=== PATIENT | female | born 1985 | race Two or more races ===

== ENCOUNTER 2017-04-28 08:04 | Emergency (ER) | payer OTHER ==
[2017-04-28 08:08] VITALS: BMI 38.7
[2017-04-28 09:14] LABS: BASOPHIL 0.9 % (0-2.0); EOSINOPHIL 1.5 % (0-4.5); MCH 30.7 pg (25.7-33.7); MCHC 34.6 g/dl (32.0-36.0); MEAN CELL VOLUME 88.8 fl (80-96); MEAN PLT VOLUME 9.3 fl (7.5-11.1); PLATELET COUNT 249 K/MM3 (134-434); RDW 11.9 % (11.6-15.6); WHITE BLOOD COUNT 10.6 K/mm3 (4.0-10.0)
[2017-04-28] MEDS ORDERED: ACETAMINOPHEN 325 MG TABLET (FP) PO ONE (09:19)
[2017-04-28 09:26] LABS: INR 1.04 (0.82-1.09); PROTHROMBIN TIME (PATIENT) 11.4 SEC (9.98-11.88)
[2017-04-28] MEDS ORDERED: IBUPROFEN 400 MG TABLET (FP) PO ONE ×2 (09:30→09:34)
--- NOTE | 2017-04-28 09:43 | PDOC ---
History of Present Illness - General Chief Complaint: Vaginal Bleeding Stated Complaint: VAGINAL BLEEDING, DIZZINESS Time Seen by Provider: 04/28/17 08:17 History Source: Patient Exam Limitations: No Limitations - History of Present Illness Travel History: No Initial Comments: 04/28/17 09:41 31 yr female with no medical history states she has an Norplant implant to her left upper arm. Pt states she has had menstrual bleeding since March 16. Intermittent bleeding with some clots. Pt denies fever or chills no back pain. [facility] have [facility] removed. Quality: reports: cramping Pain Radiation: reports: no radiation Past History - Past Medical History Allergies/Adverse Reactions: Allergies Allergy/AdvReac Type Severity Reaction Status Date / Time walnut Allergy Swelling Verified 04/28/17 08:08 Home Medications: Ambulatory Orders No Home Medications 0 dose .ROUTE UTDICT 10/05/13 Asthma: No Cancer: No Cardiac Disorders: No Diabetes: Yes (PRE) HTN: No Seizures: No Thyroid Disease: No - Reproductive History Is Patient Now?: (unsure) (#): 1 Para: 1 Therapeutic (s) & number: No Spontaneous : 0 - Immunization History Immunization Up to Date: Yes - Suicide/Smoking/Psychosocial Hx Smoking History: Current some day smoker Have you smoked in the past 12 months: No Number of Cigarettes Smoked Daily: 4 Information on smoking cessation initiated: No 'Breaking Loose' booklet given: 04/28/17 Hx Alcohol Use: Yes (SOCIAL) Drug/Substance Use Hx: No Substance Use Type: None Hx Substance Use Treatment: No Abd/GI Specific PMHX - Complaint Specific PMHX Colitis: No Diverticulitis: No Gall Bladder Disease: No GERD: No Hepatitis: No Irritable Bowel Synd (IBS): No Pancreatitis: No GI Ulcer Disease: No Review of Systems - Review of Systems Able to Perform ROS?: Yes Is the patient limited Slovak proficient: No Constitutional: No: Symptoms Reported HEENTM: No: Symptoms Reported Respiratory: No: Symptoms reported Cardiac (ROS): No: Symptoms Reported ABD/GI: No: Symptoms Reported : No: Symptoms Reported Musculoskeletal: Yes: Symptoms Reported *Physical Exam - Vital Signs Last Vital Signs Temp Pulse Resp BP Pulse Ox 98.2 F 90 20 153/82 100 04/28/17 08:05 04/28/17 08:05 04/28/17 08:05 04/28/17 08:05 04/28/17 08:05 - Physical Exam General Appearance: Yes: Nourished, Appropriately Dressed HEENT: positive: EOMI, STEPHANIE, Normal ENT Inspection, TMs Normal, Pharynx Normal Neck: positive: Supple Respiratory/Chest: positive: Lungs Clear, Normal Breath Sounds Cardiovascular: positive: Regular Rhythm, Regular Rate Gastrointestinal/Abdominal: positive: Normal Bowel Sounds, Soft. negative: Tender Musculoskeletal: positive: Normal Inspection Extremity: positive: Normal Capillary Refill, Normal Inspection, Normal Range of Motion ED Treatment Course - LABORATORY CBC & Chemistry Diagram: 04/28/17 08:55 - ADDITIONAL ORDERS Additional order review: Laboratory Results 04/28/17 04/28/17 09:15 08:55 PT with INR 11.40 INR 1.04 Urine HCG, Qual Negative 04/28/17 08:55 RBC 4.59 MCV 88.8 MCHC 34.6 RDW 11.9 MPV 9.3 Neutrophils % 62.0 Lymphocytes % 30.3 D Monocytes % 5.3 Eosinophils % 1.5 Basophils % 0.9 - RADIOLOGY Radiology Studies Ordered: Category Date Time Status TRANSVAGINAL US PREG [US] Stat Ultrasound 04/28/17 09:29 Ordered - Medications Given in the ED: ED Medications Discontinued Medications Generic Name Dose Route Start Last Admin Trade Name Freq PRN Reason Stop Dose Admin Acetaminophen 650 mg 04/28/17 09:19 04/28/17 09:39 Tylenol - PO 04/28/17 09:20 Not Given ONCE ONE Ibuprofen 800 mg 04/28/17 09:30 04/28/17 09:39 Motrin - PO 04/28/17 09:31 800 mg ONCE ONE Administration Medical Decision Making - Medical Decision Making 04/28/17 09:55 cc: vaginal bleeding for 6 weeks on and off with some cramping. pt has norplant in her left arm that she states is and needs to have removed. no abd pain denies will check labs , pelvic US *DC/Admit/Observation/Transfer Diagnosis at time of Disposition: Bleeding, Vaginal bleeding - Discharge Dispostion Disposition: HOME Condition at time of disposition: Good - Referrals Referrals: Thomas Lucero MD [Staff Physician] - Shannan Carpio MD [Staff Physician] - - Patient Instructions Printed Discharge Instructions: DI for Vaginal Bleeding Additional Instructions: PLEASE FOLLOW WITH THE SURGEON TO HAVE THE IMPLANT REMOVED PLEASE FOLLOW WITH THE ADMISSION DISCHARGE RN FOR FOLLOW UP NEEDED OR [facility] FOR ANY CRAMPING OR PAIN MAKE SURE YOU ARE USING ANOTHER FORM OF CONTROL TO AVOID UNWANTED AT THIS TIME.
[2017-04-28 11:43] VITALS: BP 105/72; PULSE 81; TEMP 97.8
== END 2017-04-28 11:43 | disposition home or self-care (01) ==
LOC: JER 08:04
DX: N93.9 Abnormal uterine and vaginal bleeding, unspecified (principal)
CPT/HCPCS: 36415; 76830-TC; 84703; 85025; 85610; 99283-25

== ENCOUNTER 2017-06-03 06:59 | Day surgery (SDC) | payer OTHER ==
[2017-06-03 07:25] VITALS: TEMP 98.1; BMI 37.8
--- NOTE | 2017-06-03 09:59 | CONSULT ---
Consult Consult Specialty:: Surgery Reason for Consultation:: Left upper extremity foreign body - History of Present Illness History of Present Illness: 32 female presents to the ER for foreign body in her left upper extremity Some pain and discomfort No fevers - History Source History Provided By: Patient Limitations to Obtaining History: No Limitations - Past Medical History ...LMP: 04/23/17 ...: No - Alcohol/Substance Use Hx Alcohol Use: Yes (OCCAS) - Smoking History Smoking history: Former smoker Have you smoked in the past 12 months: Yes Aproximately how many cigarettes per day: 4 If you are a former smoker, when did you quit?: 3WEEKS Home Medications - Allergies Allergies/Adverse Reactions: Allergies Allergy/AdvReac Type Severity Reaction Status Date / Time No Known Drug Allergies Allergy Verified 06/03/17 07:29 walnut Allergy "TIGHT Verified 06/03/17 07:29 THROAT,DIFFICULTY BREATHING" - Home Medications Home Medications: Ambulatory Orders Metformin HCl 500 mg PO BID 06/03/17 Family Disease History - Family Disease History Family History: Unremarkable Review of Systems - Review of Systems Constitutional: denies: Chills, Fever HENT: reports: No Symptoms Neck: reports: No Symptoms Cardiovascular: denies: Chest Pain Respiratory: denies: Cough Gastrointestinal: denies: Abdominal Pain Neurological: denies: Change in LOC Pain Intensity: 2 Physical Exam Vital Signs: Vital Signs Temperature 98.1 F 06/03/17 07:27 Pulse Rate 70 06/03/17 09:26 Respiratory Rate 20 06/03/17 07:27 Blood Pressure 105/64 06/03/17 09:26 O2 Sat by Pulse Oximetry (%) 100 06/03/17 09:26 Constitutional: Yes: Calm HENT: Yes: WNL Neck: Yes: Supple Cardiovascular: Yes: Regular Rate and Rhythm Respiratory: Yes: CTA Bilaterally Gastrointestinal: Yes: Soft, Abdomen, Obese Extremities: Yes: WNL Integumentary: Yes: Other (Foreign body at posterior aspect of left upper extremity) Neurological: Yes: Alert, Oriented Imaging - Results X-ray: Report Reviewed, Image Reviewed Problem List - Problems (1) Foreign body (FB) in soft tissue Code(s): M79.5 - RESIDUAL FOREIGN BODY IN SOFT TISSUE Assessment/Plan 32 female with foreign body in left upper extremity For excision
[2017-06-03 10:28] VITALS: BP 130/70; PULSE 70
--- NOTE | 2017-06-03 13:12 | OP ---
Operative Note - Note: Operative Date: 06/03/17 Pre-Operative Diagnosis: Left upper extremity foreign body Operation: Excision of Left upper extremity foreign body Post-Operative Diagnosis: Same as Pre-op Surgeon: Thomas Lucero Anesthesia: Local Specimens Removed: Left upper extremity foreign body Estimated Blood Loss (mls): 5 Operative Report Dictated: Yes
--- NOTE | 2017-06-03 14:18 | OP ---
DATE OF OPERATION: 06/03/2017 SURGEON: Masood Lucero MD PRACTICE BILLING ASSOCIATE: PREOPERATIVE DIAGNOSIS: Left upper extremity foreign body. POSTOPERATIVE DIAGNOSIS: Left upper extremity foreign body. PROCEDURE: Excision of left upper extremity foreign body. SPECIMEN: Left upper extremity foreign body. ESTIMATED BLOOD LOSS: 5 mL. DRAINS: None. ANESTHESIA: Local. REASON FOR PROCEDURE: This is a 32-year-old female who presents to the emergency room with complaints of a left upper extremity foreign body. X-ray was performed to further investigate. Because of the foreign body she has consented for excision of the left upper extremity foreign body. The risks and benefits of the procedure were explained. These included bleeding, infection, injury to surrounding structures, DVT as some of the complications. She understood and signed informed consent. DESCRIPTION OF PROCEDURE: The patient was placed supine on the operating table. The left arm was brought up to above the level of the head. The area of the foreign body was palpated and prepped and draped in the usual sterile fashion. A timeout was performed. Local lidocaine was injection along the area. An incision was made in the area and dissected down to the level of the foreign body. The foreign body was fully dissected and removed. It was noted to be a plastic contraceptive device. This was sent off the field. Hemostasis was achieved and the area was irrigated. Skin was closed using 4-0 Biosyn and a sterile dressing was applied. The patient tolerated the procedure well and was transferred to the recovery room in stable condition. MASOOD LUCERO M.D. [id number]
--- NOTE | 2017-06-04 10:28 | PATH ---
Surgical Pathology Report Patient Name: DELFINA LLOYD [facility]. Rec. #: [id number] /Age/Gender: 1985 (Age: 32) / F Account: [id number] Location: [facility] SURGICAL Taken: 06/03/2017 Received: 06/03/2017 Reported: 06/04/2017 Physicians: Thomas Lucero M.D. Specimen(s) Received FOREIGN BODY LEFT ARM Clinical History Removal of foreign body left upper arm Final Diagnosis ARM, LEFT UPPER, FOREIGN BODY, REMOVAL: FOREIGN BODY. MACROSCOPIC DIAGNOSIS. Electronically Signed Natividad Gallagher M.D. Gross Description Received in formalin labeled "foreign body left arm," is a 4 cm in length x 0.2 cm in diameter white, cylindrical, rubbery foreign body. No soft tissue is present. No sections are submitted, gross only. DL/06/03/2017 saudi/06/03/2017
== END 2017-06-03 10:28 | disposition home or self-care (01) ==
LOC: JASU-SURG 06:59
PROVIDERS: ATTEND Surgery
PROC: 0JBF0ZZ Excision of Left Upper Arm Subcutaneous Tissue and Fascia, Open Approach (ICD-10-PCS; principal; 2017-06-03 15:00)
DX: T85.848A Pain due to other internal prosthetic devices, implants and grafts, initial encounter (principal)
CPT/HCPCS: 84703; 88300-TC

== ENCOUNTER 2017-10-26 06:08 | Inpatient (IN) | payer OTHER ==
[2017-10-25 08:14] VITALS: BMI 37.8
[~2017-10-26 06:08] MED LIST: BUPIVACAINE HCL/PF 0.5% (5MG/ML) 10 ML VIAL IJ ONE
--- NOTE | 2017-10-26 07:58 | HP ---
Admitting History and Physical - Admission Chief Complaint: Morbid obesity History Source: Patient Limitations to Obtaining History: No Limitations - Past Medical History Pulmonary: Yes: Sleep Apnea Gastrointestinal: Yes: Other (Morbido obesity) ...LMP: 04/23/17 ...LMP Comment: 10/20/17 Endocrine: Yes: Diabetes Mellitus - Past Surgical History Past Surgical History: Yes: - Smoking History Smoking history: Former smoker Have you smoked in the past 12 months: No Aproximately how many cigarettes per day: 4 If you are a former smoker, when did you quit?: 3WEEKS - Alcohol/Substance Use Hx Alcohol Use: Yes (OCCAS) Home Medications - Allergies Allergies/Adverse Reactions: Allergies Allergy/AdvReac Type Severity Reaction Status Date / Time No Known Drug Allergies Allergy Verified 10/26/17 07:33 walnut Allergy "TIGHT Verified 10/26/17 07:33 THROAT,DIFFICULTY BREATHING" - Home Medications Home Medications: Ambulatory Orders Metformin HCl 500 mg PO DAILY 06/03/17 Calcium Carbonate [Calcium] 1,000 mg PO DAILY 10/25/17 Cholecalciferol (Vitamin D3) [Vitamin D3] 1,000 unit PO DAILY 10/25/17 Cyanocobalamin [Vitamin B12 -] 1,000 mcg PO DAILY 10/25/17 Folic Acid 1 mg PO DAILY 10/25/17 Iron 18 mg PO DAILY 10/25/17 Metformin HCl 500 mg PO ACDIN 10/25/17 Famotidine [Pepcid] 20 mg PO BID #60 tablet 10/26/17 Oxycodone HCl/Acetaminophen [Percocet 5-325 mg Tablet] 1 - 2 tab PO Q6H #28 tab MDD 4 10/26/17 Family Disease History - Family Disease History Family History: Unremarkable Review of Systems - Review of Systems Constitutional: denies: Chills, Fever HENT: reports: No Symptoms Neck: reports: No Symptoms Cardiovascular: reports: No Symptoms Respiratory: reports: No Symptoms Gastrointestinal: reports: No Symptoms Neurological: reports: No Symptoms Pain Intensity: 0 Physical Examination Vital Signs: Vital Signs Temperature 98.1 F 10/26/17 07:32 Pulse Rate 81 10/26/17 07:32 Respiratory Rate 20 10/26/17 07:32 Blood Pressure 111/68 10/26/17 07:32 O2 Sat by Pulse Oximetry (%) 100 10/26/17 07:28 Constitutional: Yes: Calm HENT: Yes: WNL Neck: Yes: WNL Cardiovascular: Yes: WNL Respiratory: Yes: Regular Gastrointestinal: Yes: Soft, Abdomen, Obese Neurological: Yes: Alert, Oriented Problem List - Problems (1) Morbid obesity due to excess calories Code(s): E66.01 - MORBID (SEVERE) OBESITY DUE TO EXCESS CALORIES (2) Diabetes mellitus Code(s): E11.9 - TYPE 2 DIABETES MELLITUS WITHOUT COMPLICATIONS Qualifiers: Diabetes mellitus type: type 2 (3) Sleep apnea Code(s): G47.30 - SLEEP APNEA, UNSPECIFIED Qualifiers: Sleep apnea type: obstructive Qualified Code(s): G47.33 - Obstructive sleep apnea (adult) (pediatric) Assessment/Plan Laparoscopic possible open vertical sleeve gastrectomy possible liver biopsy, EGD
[2017-10-26] MEDS ORDERED: MIDAZOLAM HCL 2 MG/2 ML SINGLE DOSE VIAL ONE (08:11)
[2017-10-26] MEDS ORDERED: PROPOFOL 20 ML ONE ×3 (08:19→10:02)
[2017-10-26] MEDS ORDERED: ROCURONIUM BROMIDE 50 MG/5 ML VIAL ONE ×2 (08:21)
[2017-10-26] MEDS ORDERED: SUCCINYLCHOLINE CHLORIDE 200 MG/10 ML VIAL ONE (08:26)
[2017-10-26] MEDS ORDERED: ceFAZolin SODIUM 1 GM VIAL IVPB ONE (08:27)
[2017-10-26] MEDS ORDERED: GLYCOPYRROLATE 0.2 MG/1 ML VIAL ONE (09:22)
[2017-10-26] MEDS ORDERED: ceFAZolin SODIUM 1 GM VIAL ONE (09:22)
[2017-10-26] MEDS ORDERED: DEXAMETHASONE SOD PHOSPHATE 4 MG/1 ML VIAL ONE (09:22)
[2017-10-26] MEDS ORDERED: LIDOCAINE HCL 2% JELLY (5 ML/TUBE) ONE (09:22)
[2017-10-26] MEDS ORDERED: LIDOCAINE HCL/PF 2% SDV 5ML VIAL ONE (09:22)
[2017-10-26] MEDS ORDERED: BUPIVACAINE HCL/PF 0.5% (5MG/ML) 10 ML VIAL IJ ONE (10:00)
[2017-10-26] MEDS ORDERED: morphine CARPU-JECT 4 MG/1 ML DISP.SYRIN IVPUSH PRN (10:24)
--- NOTE | 2017-10-26 10:27 | OP ---
Operative Note - Note: Operative Date: 10/26/17 Pre-Operative Diagnosis: morbid obesity Operation: Laparoscopic vertical sleeve gastrectomy, wedge liver biopsy, EGD Post-Operative Diagnosis: Other (Morbid obesity, hepatomegaly) Surgeon: Thomas Lucero Turf And Grounds Supervisor: Tosin Hutson Anesthesia: General Specimens Removed: Greater curvature of stomach. Wedge liver biopsy Estimated Blood Loss (mls): 30 Drains & Tubes with Location: 36 fr Bougie Operative Report Dictated: Yes
[2017-10-26] MEDS ORDERED: FAMOTIDINE 20 MG/50 ML IVPB 20 MG/50 ML MG IVPB ONE (10:33)
[2017-10-26 10:58] LABS: HEMATOCRIT 39.6 % (32.4-45.2); HEMOGLOBIN 13.5 GM/dL (10.7-15.3); MCH 30.8 pg (25.7-33.7); MCHC 34.1 g/dl (32.0-36.0); MEAN CELL VOLUME 90.4 fl (80-96); MEAN PLT VOLUME 8.5 fl (7.5-11.1); PLATELET COUNT 280 K/MM3 (134-434); RBC 4.38 M/mm3 (3.60-5.2); RDW 12.1 % (11.6-15.6); WHITE BLOOD COUNT 15.3 K/mm3 (4.0-10.0)
[2017-10-26] MEDS ORDERED: ONDANSETRON 4 MG/2 ML VIAL IVPUSH PRN (10:59)
[2017-10-26] MEDS ORDERED: FAMOTIDINE 20 MG PREMIXED IVPB IVPB ONE (10:59)
[2017-10-26 11:28] LABS: ALBUMIN 3.3 g/dl (3.4-5.0); ANION GAP 12 (8-16); BILIRUBIN,TOTAL 0.2 mg/dL (0.2-1.0); BLOOD UREA NITROGEN 14 mg/dL (7-18); CALCIUM 8.4 mg/dL (8.5-10.1); CHLORIDE 102 mmol/L (98-107); CO2 24 mmol/L (21-32); CREATININE 0.7 mg/dL (0.55-1.02); GLUCOSE,RANDOM 254 mg/dL (74-106); POTASSIUM 4.2 mmol/L (3.5-5.1); SGOT/AST 67 U/L (15-37); SGPT/ALT 55 U/L (12-78); SODIUM 138 mmol/L (136-145); TOT PROT 6.6 g/dl (6.4-8.2)
[2017-10-26 11:29] LABS: ALK PHOS 71 U/L (45-117)
--- NOTE | 2017-10-26 11:37 | SPEC ---
DATE OF OPERATION: 10/26/2017 SURGEON: Masood Lucero MD POMOLOGY TEACHER: HOLLY Amezcua PREOPERATIVE DIAGNOSES: 1. Morbid obesity. 2. Body mass index of 37.8. 3. Obstructive sleep apnea. 4. Diabetes mellitus. POSTOPERATIVE DIAGNOSES: 1. Morbid obesity. 2. Body mass index of 37.8. 3. Obstructive sleep apnea. 4. Diabetes mellitus. 5. Hepatomegaly. PROCEDURES: 1. Laparoscopic vertical sleeve gastrectomy. 2. Laparoscopic wedge liver biopsy. 3. Esophagogastroduodenoscopy. SPECIMEN: 1. Greater curve of the stomach. 2. Wedge liver biopsy. ESTIMATED BLOOD LOSS: 30 mL BOUGIE SIZE: 36-Tajik. ANESTHESIA: GET. DRAINS: None. REASON FOR PROCEDURE: This is a 32-year-old female who presented to the office for weight loss options. After describing different options, she decided to proceed with a laparoscopic, possible open vertical sleeve gastrectomy, possible liver biopsy, and EGD. RISKS AND BENEFITS: After describing the different options for weight loss management, the patient decided to proceed with a laparoscopic, possible open vertical sleeve gastrectomy. The patient was seen by the respective subspecialties and cleared for surgery. The risks and benefits of the procedure were explained. These included bleeding, infection, hernia, WA, DVT, PE, injury to surrounding structures including the liver, colon, bowel, spleen, esophagus, vessel injury, nerve injury, weight regain, gastric leak, staple line leak, sleeve leak, obstruction, vitamin deficiency, hair loss and as some of the possible complications. The patient understood and signed informed consent. DESCRIPTION OF PROCEDURE: The patient was placed supine on the operating room table. The patient underwent general endotracheal intubation. A San catheter was inserted. The arms were brought out at 90 degrees and secured. A footboard was placed and the legs were secured laterally with padding. The abdomen was prepped and draped in the usual sterile fashion. A timeout was performed. An incision was made in the left upper quadrant and a Veress needle inserted. Pneumoperitoneum was established. Subsequently, the Veress needle was removed and a 12-mm trocar was placed. The laparoscopic camera was then inserted and inspection of the abdominal cavity was performed. An incision was then made in the supraumbilical area and a 15-mm trocar was placed under direct visualization. A 5-mm trocar was then placed in the right upper quadrant and a 5-mm trocar was placed below the left subcostal margin. A stab wound was made in the subxiphoid area and a Ella clamp inserted and removed to dilate the tract. A Dione liver retractor was inserted. The post was secured at the bedside by the nursing staff. The patient was placed in steep reverse Trendelenburg position and the Dione liver retractor was used to secure the liver towards the anterior abdominal wall. The pylorus was identified and 6 cm proximal to it, the lesser sac was entered using the LigaSure device. All lateral attachments to the greater curvature of the stomach, including the short gastric vessels, were ligated using the LigaSure device toward the gastrosplenic and gastrophrenic ligaments. Once this was done in its entirety, it was confirmed that all tubes within the nasal or oropharyngeal cavity, including a temperature probe, was removed by Anesthesia. The bougie was then inserted by Anesthesia. Transection of the stomach was then begun staying adjacent to the bougie but away from the angularis. Transection of the stomach was performed near the portion of the stomach where the lesser sac was entered. Two laparoscopic Endo-SABRINA black alex were used at this location. Laparoscopic Endo SABRINA purple staple loads were then used for the remainder of the transection until the greater curvature of the stomach was fully transected. This was done staying close to the bougie. Care was taken to stay away from the angle of His cephalad. The staple line was then inspected. Hemostasis was identified. A leak test was then performed. It was clamped distally to the staple line. Irrigation solution was placed in the left upper quadrant and air was insufflated by Anesthesia into the sleeve. No leaks were identified. No obstruction was identified. This was done through the entirety of the staple line. At this point, the irrigation solution was suctioned and again, hemostasis was noted. A wedge liver biopsy was then performed. The left lobe of the liver was identified and a portion of the edge was grasped. Using electrocautery, a wedge of the liver was excised. This was removed and sent off the field as specimen. Hemostasis at the site of the wedge liver biopsy was attained using electrocautery. The 15-mm supraumbilical trocar was then removed and the greater curvature specimen removed from the site using a sponge stick muniz. The specimen was inspected and a Veress needle inserted. The specimen insufflated adequately and no leak was identified. The staple line was noted to be intact. A Marino-Eder device was then used to temporarily close the fascia with a 0 Vicryl suture at the site. The 15-mm trocar was then reinserted and the 12-mm trocar in the left upper quadrant was removed. The fascia at this site was then closed using the Marino-Eder device with a 0 Vicryl suture. Again, hemostasis was noted. The Dione liver retractor was then removed under direct visualization. Pneumoperitoneum was desufflated and the fascial sutures were secured. Hemostasis was noted at all incision sites and Marcaine was injected at all incision sites. All incision sites were closed using 4-0 Biosyn. Sterile dressings were applied. The patient tolerated the procedure well and was transferred to the recovery room in stable condition with the San catheter intact. The patient was transferred to telemetry for further monitoring. In addition, upper endoscopy was performed at the end of the case. The endoscope was inserted into the patient's mouth. The esophagus, GE junction, gastric staple line, and pouch were inspected. Hemostasis was noted. No leak or obstruction was noted. The stomach was suctioned and the endoscope removed. Patient tolerated the procedure well and was transferred to recovery room in stable condition. MASOOD LUCERO M.D. [id number]
[2017-10-26] MEDS ORDERED: ONDANSETRON 4 MG/2 ML VIAL IVPUSH ONE (11:50)
[2017-10-26] MEDS ORDERED: ACETAMINOPHEN 1000 MG/100 ML VIAL (NON FORMULARY) IVPB ONE (11:58)
[2017-10-26] MEDS ORDERED: METOCLOPRAMIDE HCL INJECTION 10 MG/2 ML VIAL IVPUSH ONE (13:57)
[2017-10-26] MEDS ORDERED: MORPHINE SULFATE 10 MG/1 ML *VIAL ONE (14:15)
[2017-10-26] MEDS ORDERED: morphine CARPU-JECT 10 MG/1 ML DISP.SYRIN IVPUSH ONE (14:18)
[2017-10-26] MEDS: SODIUM CHLORIDE 1,000 ML IV SCH (18:00)
[2017-10-26] MEDS: METOCLOPRAMIDE HCL INJECTION 10 MG/2 ML VIAL IVPUSH SCH ×3 (18:35→22:25)
[2017-10-26] MEDS: ACETAMINOPHEN 1000 MG/100 ML VIAL (NON FORMULARY) IVPB SCH ×2 (19:00→22:25)
[2017-10-26] MEDS: ONDANSETRON 4 MG/2 ML VIAL IVPUSH SCH ×2 (19:41→22:24)
[2017-10-26] MEDS: INSULIN SLIDING SCALE (NOVOLOG) 1 VIAL SQ SCH (19:57)
[2017-10-26] MEDS: FAMOTIDINE 20 MG/50 ML IVPB 20 MG/50 ML MG IVPB SCH (22:24)
[2017-10-26] MEDS: ENOXAPARIN NA (PORCINE) 40 MG/0.4 ML DISP.SYRIN SQ SCH (22:25)
[2017-10-27] MEDS: morphine SULFATE 4 MG/ML VIAL IVPUSH PRN ×5 (02:42→22:08)
[2017-10-27] MEDS: ONDANSETRON 4 MG/2 ML VIAL IVPUSH SCH ×6 (02:42→22:02)
[2017-10-27] MEDS: METOCLOPRAMIDE HCL INJECTION 10 MG/2 ML VIAL IVPUSH SCH ×4 (04:57→22:02)
[2017-10-27] MEDS: ACETAMINOPHEN 1000 MG/100 ML VIAL (NON FORMULARY) IVPB SCH (04:58)
[2017-10-27] MEDS: LACTATED RINGERS SOLUTION 1,000 ML IV SCH ×2 (07:31→14:22)
[2017-10-27] MEDS: INSULIN SLIDING SCALE (NOVOLOG) 1 VIAL SQ SCH ×3 (07:34→16:41)
[2017-10-27 07:54] LABS: HEMATOCRIT 34.3 % (32.4-45.2); MCHC 34.9 g/dl (32.0-36.0); MEAN CELL VOLUME 88.8 fl (80-96); MEAN PLT VOLUME 9.1 fl (7.5-11.1); PLATELET COUNT 238 K/MM3 (134-434); RBC 3.86 M/mm3 (3.60-5.2); RDW 12.1 % (11.6-15.6); WHITE BLOOD COUNT 14.5 K/mm3 (4.0-10.0)
[2017-10-27 08:10] LABS: ALBUMIN 2.9 g/dl (3.4-5.0); ANION GAP 13 (8-16); BILIRUBIN,TOTAL 0.5 mg/dL (0.2-1.0); BLOOD UREA NITROGEN 8 mg/dL (7-18); CHLORIDE 104 mmol/L (98-107); CO2 21 mmol/L (21-32); GLUCOSE,RANDOM 207 mg/dL (74-106); POTASSIUM 3.8 mmol/L (3.5-5.1); SGOT/AST 46 U/L (15-37); SGPT/ALT 58 U/L (12-78); SODIUM 138 mmol/L (136-145); TOT PROT 6.3 g/dl (6.4-8.2)
[2017-10-27 08:12] LABS: ALK PHOS 66 U/L (45-117); CREATININE 0.5 mg/dL (0.55-1.02)
[2017-10-27] MEDS: FAMOTIDINE 20 MG/50 ML IVPB 20 MG/50 ML MG IVPB SCH ×2 (09:42→22:02)
[2017-10-27] MEDS: ENOXAPARIN NA (PORCINE) 40 MG/0.4 ML DISP.SYRIN SQ SCH ×2 (09:42→22:02)
[2017-10-27] MEDS ORDERED: oxyCODONE HCL 5 MG TABLET PO PRN (11:46)
[2017-10-27] MEDS ORDERED: INSULIN (NOVOLOG) ASPART 100 UNITS/ML 10ML VIAL ONE (11:47)
--- NOTE | 2017-10-27 11:48 | PN ---
Progress Note (short form) - Note Progress Note: POD 1 Pain controlled Vital Signs Period Temp Pulse Resp BP Sys/Segovia Pulse Ox Last 24 Hr 98 F-100 F 82-105 16-20 108-135/68-80 98-100 CBC, BMP 10/27/17 06:15 10/27/17 06:15 UGI: no leak/obstruction Clears Ambulate Problem List - Problems (1) Morbid obesity due to excess calories Code(s): E66.01 - MORBID (SEVERE) OBESITY DUE TO EXCESS CALORIES (2) Diabetes mellitus Code(s): E11.9 - TYPE 2 DIABETES MELLITUS WITHOUT COMPLICATIONS Qualifiers: Diabetes mellitus type: type 2 (3) Sleep apnea Code(s): G47.30 - SLEEP APNEA, UNSPECIFIED Qualifiers: Sleep apnea type: obstructive Qualified Code(s): G47.33 - Obstructive sleep apnea (adult) (pediatric)
[2017-10-27] MEDS ORDERED: SODIUM CHLORIDE 1,000 ML IV SCH (12:00)
--- NOTE | 2017-10-27 13:40 | PN ---
Progress Note (short form) - Note Progress Note: Post op day#1.S/P Laproscopic gastric sleeve placement under GA uneventful.Patient stable.No any anesthesia related problem.Patient DC from the anesthesia care.
--- NOTE | 2017-10-27 13:54 | PATH ---
Surgical Pathology Report Patient Name: DELFINA LLOYD [facility]. Rec. #: [id number] /Age/Gender: 1985 (Age: 32) / F Account: [id number] Location: 4 PEDS/ADOL Taken: 10/26/2017 Received: 10/26/2017 Reported: 10/27/2017 Physicians: Thomas Lucero M.D. Specimen(s) Received A: GREATER CURVATURE STOMACH B: LIVER BIOPSY Clinical History Morbid obesity Final Diagnosis A. STOMACH, GREATER CURVATURE, LAPAROSCOPIC VERTICAL SLEEVE GASTRECTOMY: PORTION OF STOMACH WITH MODERATE CHRONIC GASTRITIS. IMMUNOHISTOCHEMICAL STAIN FOR H. PYLORI IS POSITIVE (RARE). B. LIVER, BIOPSY: LIVER PARENCHYMA WITH MODERATE STEATOSIS (~40%). NO INCREASE IN IRON AND FIBROSIS ON PERFORMED SPECIAL STAINS (IRON AND TRICHROME). Electronically Signed Natividad Gallagher M.D. Gross Description A. Received in formalin, labeled "greater curvature of stomach," is a 148 gram, 19.0 x 3.8 x 3.2 cm. portion of stomach with a stapled margin of resection. The serosa is milner-redmond with minimal attached fat. The mucosa is milner-pink with normal folds. No mucosal masses are identified. Counterintelligence Agent sections are submitted in one cassette. B. Received in formalin labeled "liver biopsy," is a 4.8 x 2.3 x 1.5 cm aggregate of milner, irregular portions of soft tissue, consistent with liver tissue. Counterintelligence Agent sections are submitted in 2 cassettes. /10/26/2017 saudi10/26/2017
[2017-10-27] MEDS: SODIUM CHLORIDE 1,000 ML IV SCH (14:22)
[2017-10-27] MEDS ORDERED: PT OWN MED DRAWER 7, Y5N ONE (18:03)
[2017-10-28] MEDS: morphine SULFATE 4 MG/ML VIAL IVPUSH PRN ×3 (02:37→10:27)
[2017-10-28] MEDS: ONDANSETRON 4 MG/2 ML VIAL IVPUSH SCH ×3 (02:37→10:30)
[2017-10-28] MEDS: METOCLOPRAMIDE HCL INJECTION 10 MG/2 ML VIAL IVPUSH SCH ×2 (04:16→10:12)
[2017-10-28] MEDS: INSULIN SLIDING SCALE (NOVOLOG) 1 VIAL SQ SCH (06:03)
[2017-10-28] MEDS: FAMOTIDINE 20 MG/50 ML IVPB 20 MG/50 ML MG IVPB SCH (09:13)
[2017-10-28] MEDS: ENOXAPARIN NA (PORCINE) 40 MG/0.4 ML DISP.SYRIN SQ SCH (09:13)
[2017-10-28] MEDS ORDERED: PNEUMOC 13-VAL CONJ-DIP CRM/PF 0.5 ML DISP.SYRIN IM ONE (09:47)
[2017-10-28] MEDS ORDERED: PNEUMOCOCCAL 23 VACCINE 0.5 ML VIAL IM ONE (11:00)
[2017-10-28] MEDS ORDERED: FLU VACCINE QUAD 60 MCG/0.5 ML (MDV 17-18) IM ONE (11:00)
[2017-10-28] MEDS ORDERED: PT OWN MED DRAWER 7, Y5N ONE (11:01)
[2017-10-28 11:27] VITALS: BP 141/78; PULSE 90; TEMP 98.2
== END 2017-10-28 11:33 | disposition home or self-care (01) | DRG 403 ==
LOC: JSAMEDAYSX 06:08 → EDSTATUS 08:00 → J4S 16:22
PROVIDERS: ADMIT Surgery; ATTEND Surgery
PROC: 0DB64Z3 Excision of Stomach, Percutaneous Endoscopic Approach, Vertical (ICD-10-PCS; principal; 2017-10-26 08:00)
PROC: 0FB24ZX Excision of Left Lobe Liver, Percutaneous Endoscopic Approach, Diagnostic (ICD-10-PCS; 2017-10-26 08:00)
PROC: 0DJ08ZZ Inspection of Upper Intestinal Tract, Via Natural or Artificial Opening Endoscopic (ICD-10-PCS; 2017-10-26 08:00)
DX: E66.01 Morbid (severe) obesity due to excess calories (principal); R16.0 Hepatomegaly, not elsewhere classified; Z68.37 Body mass index [BMI] 37.0-37.9, adult; E11.9 Type 2 diabetes mellitus without complications; Z79.84 Long term (current) use of oral hypoglycemic drugs; Z87.891 Personal history of nicotine dependence; G47.33 Obstructive sleep apnea (adult) (pediatric)
CPT/HCPCS: 36415; 74241-TC-FY; 80053; 82962; 84703; 85027; 86850; 86900; 86901; 88307-TC; 94010; 94760; J0131; J7030

== ENCOUNTER 2018-05-19 08:51 | Emergency (ER) | payer OTHER ==
[2018-05-19 09:21] VITALS: PULSE 72; BMI 28.3
[2018-05-19] MEDS ORDERED: SODIUM CHLORIDE 0.9% 1000 ML INFUS.BAG IV ONE (10:29)
[2018-05-19] MEDS ORDERED: METOCLOPRAMIDE HCL INJECTION 10 MG/2 ML VIAL IVPUSH ONE (10:29)
[2018-05-19] MEDS ORDERED: METOCLOPRAMIDE HCL INJECTION 10 MG/2 ML VIAL ONE (10:55)
[2018-05-19 11:10] LABS: BASO % 0.3 % (0-2.0); EOS % 0.5 % (0-4.5); HEMATOCRIT 34.7 % (32.4-45.2); HEMOGLOBIN 11.7 GM/dL (10.7-15.3); LYMPH % 29.7 % (8-40); MCHC 33.6 g/dl (32.0-36.0); MEAN CELL VOLUME 89.2 fl (80-96); MEAN PLT VOLUME 8.3 fl (7.5-11.1); MONO % 5.5 % (3.8-10.2); PLATELET COUNT 218 K/MM3 (134-434); RBC 3.89 M/mm3 (3.60-5.2); RDW 12.4 % (11.6-15.6); WHITE BLOOD COUNT 9.6 K/mm3 (4.0-10.0)
[2018-05-19 11:13] LABS: URINE APPEARANCE CLEAR; URINE BILIRUBIN NEGATIVE (<2.0 mg/dL); URINE COLOR LTYELLOW; URINE GLUCOSE (UA) NEGATIVE (NEGATIVE); URINE KETONE NEGATIVE (NEGATIVE); URINE LEUK ESTERASE NEGATIVE (NEGATIVE); URINE NITRITE NEGATIVE (NEGATIVE); URINE PROTEIN NEGATIVE (NEGATIVE); URINE UROBILINOGEN NEGATIVE mg/dL (0.2-1.0)
[2018-05-19 11:15] LABS: HCG,QUALITATIVE URINE Negative
[2018-05-19 11:24] LABS: EPI CELLS RARE /HPF (FEW); URINE MUCUS RARE
[2018-05-19] MEDS ORDERED: OXYMETAZOLINE 0.05% NASAL SOLUTION 15 ML BOTTLE NS ONE (11:24)
[2018-05-19] MEDS ORDERED: KETOROLAC TROMETHAMINE 30 MG/1 ML VIAL IVPUSH ONE (11:24)
[2018-05-19] MEDS ORDERED: PSEUDOEPHEDRINE HCL 30 MG TABLET PO ONE (11:24)
--- NOTE | 2018-05-19 11:24 | PDOC ---
History of Present Illness - General History Source: Patient Exam Limitations: No Limitations - History of Present Illness Initial Comments: 05/19/18 11:26 The patient is a 33 year old female with no significant PMH who presents to the emergency department with a headache for the past three days. Patient describes the headache as localized in the right frontal head and behind the right ear that worsens when moving forward. 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 Patient also reports right sided facial tingling that has now resolved on its own. Patent denies similar symptoms in the past. Patient denies any head trauma. Patent reports she thought the headache was related to sinus congestion and she took a sudafed with minimal improvement of her symptoms. The patient denies fever, chills, nausea, vomit. Allergies: NKA Past surgical history: Patient denies alcohol, drug or cigarette use. Social history: No reported alcohol, drug, or cigarette use. PCP: Dr. Siegel, <Day Richmond - Last Filed: 05/19/18 11:27> - General History Source: Patient Exam Limitations: No Limitations <Lo Copeland - Last Filed: 05/19/18 12:43> - General Chief Complaint: Headache Stated Complaint: HEADACHE Time Seen by Provider: 05/19/18 09:31 Past History <Day Richmond - Last Filed: 05/19/18 11:27> - Past Medical History Anemia: Yes (DURING ) Asthma: No Cancer: No Cardiac Disorders: No CVA: No COPD: No CHF: No Dementia: No Diabetes: No GI Disorders: Yes (ACID REFLUX) Disorders: No HTN: No Hypercholesterolemia: No Liver Disease: No Seizures: No Thyroid Disease: No - Reproductive History (#): 1 Para: 1 Therapeutic (s) & number: No Spontaneous : 0 - Immunization History Immunization Up to Date: Yes - Suicide/Smoking/Psychosocial Hx Smoking History: Former smoker Have you smoked in the past 12 months: Yes Number of Cigarettes Smoked Daily: 4 If you are a former smoker, when did you quit?: apr 2018 Information on smoking cessation initiated: No 'Breaking Loose' booklet given: 04/28/17 Hx Alcohol Use: No Drug/Substance Use Hx: No Substance Use Type: Alcohol Hx Substance Use Treatment: No <Lo Copeland - Last Filed: 05/19/18 12:43> - Past Medical History Allergies/Adverse Reactions: Allergies Allergy/AdvReac Type Severity Reaction Status Date / Time No Known Drug Allergies Allergy Verified 05/19/18 09:08 walnut Allergy "TIGHT Verified 05/19/18 09:08 THROAT,DIFFICULTY BREATHING" Home Medications: Ambulatory Orders Calcium Carbonate [Calcium] 1,000 mg PO DAILY 10/25/17 Cholecalciferol (Vitamin D3) [Vitamin D3] 1,000 unit PO DAILY 10/25/17 Cyanocobalamin [Vitamin B12 -] 1,000 mcg PO DAILY 10/25/17 Folic Acid 1 mg PO DAILY 10/25/17 Iron 18 mg PO DAILY 10/25/17 Famotidine [Pepcid] 20 mg PO BID #60 tablet 10/26/17 Fluticasone Prop 0.05% Nasal [Flonase -] 1 - 2 spray NS DAILY #1 spray.pump 06/26 Pseudoephedrine HCl 30 mg PO TID PRN #15 tablet MDD 3 05/19/18 Review of Systems - Review of Systems Able to Perform ROS?: Yes Comments:: 05/19/18 11:27 ADULT ROS GENERAL/CONSTITUTIONAL: No fever or chills. No weakness. HEAD, EYES, EARS, NOSE AND THROAT: No change in vision. No ear pain or discharge. No sore throat. CARDIOVASCULAR: No chest pain or shortness of breath. RESPIRATORY: No cough, wheezing, or hemoptysis. GASTROINTESTINAL: No nausea, vomiting, diarrhea or constipation. GENITOURINARY: No dysuria, frequency, or change in urination. MUSCULOSKELETAL: No joint or muscle swelling or pain. No neck or back pain. SKIN: No rash NEUROLOGIC: (+) headache. No vertigo, loss of consciousness, or change in strength/sensation. ENDOCRINE: No increased thirst. No abnormal weight change. HEMATOLOGIC/LYMPHATIC: No anemia, easy bleeding, or history of blood clots. ALLERGIC/IMMUNOLOGIC: No hives or skin allergy. <Day Richmond - Last Filed: 05/19/18 11:27> *Physical Exam - Vital Signs Last Vital Signs Temp Pulse Resp BP Pulse Ox 98.6 F 72 20 94/48 L 99 05/19/18 09:09 05/19/18 09:09 05/19/18 09:09 05/19/18 09:09 05/19/18 09:09 - Physical Exam Comments: 05/19/18 11:27 ADULT EXAM GENERAL: Awake, alert, and fully oriented, in no acute distress HEAD: No signs of trauma EYES: PERRLA, EOMI, sclera anicteric, conjunctiva clear ENT: Moist mucosa. (+) Right tympanic membrane with serous effusion. Left tympanic membrane is normal. (+) Bilateral nasal turbinate enlargement. (+) Posterior oropharynx cobblestoning. NECK: Normal ROM, supple, no lymphadenopathy, JVD, or masses. No meningismus. LUNGS: Breath sounds equal, clear to auscultation bilaterally. No wheezes, and no crackles HEART: Regular rate and rhythm, normal S1 and S2, no murmurs, rubs or gallops ABDOMEN: Soft, nontender, normoactive bowel sounds. No guarding, no rebound. No masses EXTREMITIES: Warm and well perfused. NEUROLOGICAL: Moves all extremities. 5/5 strength to all extremities. Cranial nerves are intact. (+) Right frontal facial and behind the ear pressure worse with moving forward. SKIN: Warm, Dry, normal turgor, no rashes or lesions noted. <Day Richmond - Last Filed: 05/19/18 11:27> - Vital Signs Last Vital Signs Temp Pulse Resp BP Pulse Ox 98.6 F 72 20 94/48 L 99 05/19/18 09:09 05/19/18 09:09 05/19/18 09:09 05/19/18 09:09 05/19/18 09:09 <Lo Copeland - Last Filed: 05/19/18 12:43> ED Treatment Course - LABORATORY CBC & Chemistry Diagram: 05/19/18 10:44 05/19/18 10:44 - ADDITIONAL ORDERS Additional order review: Laboratory Results 05/19/18 10:44 Urine Color Ltyellow Urine Appearance Clear Urine pH 5.0 Ur Specific [place] 1.009 L Urine Protein Negative Urine Glucose (UA) Negative Urine Ketones Negative Urine Blood 1+ H Urine Nitrite Negative Urine Bilirubin Negative Urine Urobilinogen Negative Ur Leukocyte Esterase Negative Urine WBC (Auto) 1 Urine RBC (Auto) 1 Ur Epithelial Cells Rare Urine Mucus Rare Urine HCG, Qual Negative 05/19/18 10:44 RBC 3.89 MCV 89.2 MCHC 33.6 RDW 12.4 MPV 8.3 Neutrophils % 64.0 Lymphocytes % 29.7 Monocytes % 5.5 Eosinophils % 0.5 Basophils % 0.3 - Medications Given in the ED: ED Medications Discontinued Medications Generic Name Dose Route Start Last Admin Trade Name Freq PRN Reason Stop Dose Admin Metoclopramide HCl 10 mg 05/19/18 10:29 05/19/18 11:11 Reglan Injection - IVPUSH 05/19/18 10:30 10 mg ONCE ONE Administration Sodium Chloride 1,000 ml 05/19/18 10:29 05/19/18 11:10 Normal Saline - IV 05/19/18 10:30 1,000 ml ONCE ONE Administration <Day Richmond - Last Filed: 05/19/18 11:27> - LABORATORY CBC & Chemistry Diagram: 05/19/18 10:44 05/19/18 10:44 - ADDITIONAL ORDERS Additional order review: Laboratory Results 05/19/18 10:44 Urine Color Ltyellow Urine Appearance Clear Urine pH 5.0 Ur Specific [place] 1.009 L Urine Protein Negative Urine Glucose (UA) Negative Urine Ketones Negative Urine Blood 1+ H Urine Nitrite Negative Urine Bilirubin Negative Urine Urobilinogen Negative Ur Leukocyte Esterase Negative Urine HCG, Qual Negative 05/19/18 10:44 RBC 3.89 MCV 89.2 MCHC 33.6 RDW 12.4 MPV 8.3 Neutrophils % 64.0 Lymphocytes % 29.7 Monocytes % 5.5 Eosinophils % 0.5 Basophils % 0.3 - Medications Given in the ED: ED Medications Discontinued Medications Generic Name Dose Route Start Last Admin Trade Name Freq PRN Reason Stop Dose Admin Metoclopramide HCl 10 mg 05/19/18 10:29 05/19/18 11:11 Reglan Injection - IVPUSH 05/19/18 10:30 10 mg ONCE ONE Administration Sodium Chloride 1,000 ml 05/19/18 10:29 05/19/18 11:10 Normal Saline - IV 05/19/18 10:30 1,000 ml ONCE ONE Administration <Lo Copeland - Last Filed: 05/19/18 12:43> Medical Decision Making - Medical Decision Making 05/19/18 11:22 33-year-old female history of ALLERGIC sinusitis here today complaining of 3 days of headache. 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 She has right sinus tenderness and bilateral turbinate enlargement with TM clear effusions and signs of postnasal drip. We will treat her symptoms with anti-inflammatories and decongestants Flonase IV fluids and Reglan. We'll order basic labs to rule out any associated causes such as hyponatremia or anemia we'll obtain a UA to rule out as a cause and reassess 05/19/18 12:42 pt feeling much improved. labs unremarkable. will dc wiht tx for siustisis and fu outpt nuerologyu as needed. <Lo Copeland - Last Filed: 05/19/18 12:43> *DC/Admit/Observation/Transfer - Attestations Scribe Attestion: 05/19/18 11:27 Documentation prepared by Day Richmond, acting as phlebotomist medical lab assistant for Lo Copeland MD. <Day Richmond - Last Filed: 05/19/18 11:27> - Discharge Dispostion Decision to Admit order: No <Lo Copeland - Last Filed: 05/19/18 12:43> Diagnosis at time of Disposition: Sinusitis - Discharge Dispostion Disposition: HOME Condition at time of disposition: Improved - Prescriptions Prescriptions: Fluticasone Prop 0.05% Nasal [Flonase -] 1 - 2 spray NS DAILY #1 spray.pump Pseudoephedrine HCl 30 mg PO TID PRN #15 tablet MDD 3 PRN Reason: Nasal Congestion - Referrals Referrals: Reno Mckeon MD [Primary Care Provider] - Lizette Jeronimo MD [Staff Physician] - - Patient Instructions Printed Discharge Instructions: Sinusitis Additional Instructions: you can use flonase spray intranasally daily each nostril. take psuedoephedrine 30 mg every 8 hrs as needed for congestion. use motrin 600 mg every 8 hrs as needed for pain. follow up with your primary doctor. return for any problems or concerns for persistant symptoms beyond one week you should follow up with a neurologist. see referral for dr. boo. - Post Discharge Activity
[2018-05-19] MEDS ORDERED: FLUTICASONE PROP 0.05% 16 GM NASAL SPRAY NS ONE (11:25)
[2018-05-19 11:32] LABS: ALBUMIN 3.3 g/dl (3.4-5.0); ALK PHOS 49 U/L (45-117); ANION GAP 6 MMOL/L (8-16); BILIRUBIN,TOTAL 0.3 mg/dL (0.2-1); BLOOD UREA NITROGEN 14 mg/dL (7-18); CALCIUM 8.9 mg/dL (8.5-10.1); CHLORIDE 108 mmol/L (98-107); CO2 27 mmol/L (21-32); CREATININE 0.6 mg/dL (0.55-1.3); GLUCOSE,RANDOM 69 mg/dL (74-106); POTASSIUM 4.1 mmol/L (3.5-5.1); SGOT/AST 6 U/L (15-37); SGPT/ALT 13 U/L (13-61); SODIUM 141 mmol/L (136-145); TOT PROT 6.7 g/dl (6.4-8.2)
[2018-05-19] MEDS ORDERED: KETOROLAC TROMETHAMINE 30 MG/1 ML VIAL ONE (11:43)
[2018-05-19] MEDS ORDERED: PSEUDOEPHEDRINE HCL 60 MG TABLET ONE (11:43)
[2018-05-19 13:05] VITALS: BP 106/64; TEMP 98.2
== END 2018-05-19 12:55 | disposition home or self-care (01) ==
LOC: JER 08:51
PROC: 3E0337Z Introduction of Electrolytic and Water Balance Substance into Peripheral Vein, Percutaneous Approach (ICD-10-PCS; principal; 2018-05-19)
PROC: 3E033GC Introduction of Other Therapeutic Substance into Peripheral Vein, Percutaneous Approach (ICD-10-PCS; 2018-05-19)
PROC: 3E0333Z Introduction of Anti-inflammatory into Peripheral Vein, Percutaneous Approach (ICD-10-PCS; 2018-05-19)
DX: J32.9 Chronic sinusitis, unspecified (principal)
CPT/HCPCS: 36415; 80053; 81003; 81015; 84703; 85025; 99282-25; J7030

== ENCOUNTER 2018-05-20 19:53 | Emergency (ER) | payer OTHER ==
--- NOTE | 2018-05-20 19:59 | PDOC ---
Rapid Medical Evaluation Chief Complaint: Pain Time Seen by Provider: 05/20/18 19:58 Medical Evaluation: Allergies Allergy/AdvReac Type Severity Reaction Status Date / Time No Known Drug Allergies Allergy Verified 05/19/18 09:08 walnut Allergy "TIGHT Verified 05/19/18 09:08 THROAT,DIFFICULTY BREATHING" 05/20/18 19:59 33 year old female c/o right ear and temporal area headache. diagnosed with sinus infection yesterday and ws given flonase. PE: patient alert ox3. A: sinisitis? P: patient to the ER for further management of care,. Discharge Disposition - Diagnosis Headache Qualifiers: Headache type: unspecified Headache chronicity pattern: acute headache Intractability: not intractable Qualified Code(s): R51 - Headache - Referrals - Patient Instructions - Post Discharge Activity
[2018-05-20 20:04] VITALS: BP 107/57; PULSE 76; TEMP 98.5; BMI 28.3
--- NOTE | 2018-05-20 20:51 | PDOC ---
Attending Attestation - HPI HPI: This patient is a 33 year old female, who was diagnosed with a sinus infection yesterday here at [facility],presents with 4 days of right sided temporal headache. She was d/c with flonase and she states that her headache still persists all day long. She describes it as a right sided throbbing pain that radiates to behind her right ear. She states that it is only alleviated when lying down. She also admits to associated photophobia and phonophobia. She took some Ibuprofen which she states has not really helped. LMP was on 05/03, is currently on BC. The patient denies fever, chills, nausea, vomit. She denies recent illness. Denies tinnitus, changes in vision, throat pain, nasal congestion, tearing of the eyes. Surgical Hx: Gastric bypass in October PCP:Dr. Siegel <Bridgette Mcfadden - Last Filed: 05/20/18 21:20> - Resident Resident Name: Kimmie Kwong - ED Attending Attestation I have performed the following: I have examined & evaluated the patient, The case was reviewed & discussed with the resident, I agree w/resident's findings & plan - Physicial Exam PE: 05/21/18 04:45 Agree with resident exam. - Medical Decision Making 05/21/18 02:[address] is normal; LP done; opening pressure normal at 17-18mm H2O; She will have some fluid sent for analysis; slight traumatic tap, as well as the fact that the pt was anesthetized and had bleeding at the site. 05/21/18 04:45 LP normal; opening pressure normal; labs normal. Pt feeling better. 05/22/18 01:32 <Mayte Hanna - Last Filed: 05/22/18 01:34> Procedures - Lumbar Puncture Indication: Pseudotumor Cerebri, Headache CT Scan: Yes Betadine Prep: Yes Position: Right lateral decubitus Site: L4-L51 Local Anesthesia: 1% Lidocaine with epi Volume(ml): 3 Lumbar Puncture Kit: Adult Needle Size(gauge): 0 Opening Pressure(mmHg): 17-18mm H20 Traumatic Tap: Yes (blood likely due to local anesthetic) Tubes Obtained: 2 Clear Fluid: Yes Complications: No <Mayte Hanna - Last Filed: 05/22/18 01:34>
[2018-05-20] MEDS ORDERED: SODIUM CHLORIDE 1,000 ML IV STA (21:15)
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
[2018-05-20] MEDS ORDERED: PROCHLORPERAZINE INJECTION 10 MG/2 ML VIAL IVPB ONE ×2 (22:43→23:00)
[2018-05-20 23:20] LABS: BASO % 0.7 % (0-2.0); EOS % 0.7 % (0-4.5); HEMATOCRIT 35.9 % (32.4-45.2); HEMOGLOBIN 12.3 GM/dL (10.7-15.3); LYMPH % 29.8 % (8-40); MCHC 34.2 g/dl (32.0-36.0); MEAN CELL VOLUME 90.6 fl (80-96); MEAN PLT VOLUME 8.6 fl (7.5-11.1); MONO % 5.3 % (3.8-10.2); NEUT % 63.5 % (42.8-82.8); PLATELET COUNT 229 K/MM3 (134-434); RBC 3.96 M/mm3 (3.60-5.2); RDW 12.7 % (11.6-15.6)
[2018-05-20 23:42] LABS: ALBUMIN 3.4 g/dl (3.4-5.0); ALK PHOS 58 U/L (45-117); ANION GAP 7 MMOL/L (8-16); BILIRUBIN,TOTAL 0.3 mg/dL (0.2-1); BLOOD UREA NITROGEN 13 mg/dL (7-18); CALCIUM 8.6 mg/dL (8.5-10.1); CHLORIDE 107 mmol/L (98-107); CO2 26 mmol/L (21-32); CREATININE 0.7 mg/dL (0.55-1.3); GLUCOSE,RANDOM 81 mg/dL (74-106); POTASSIUM 3.8 mmol/L (3.5-5.1); SGOT/AST 10 U/L (15-37); SGPT/ALT 12 U/L (13-61); SODIUM 140 mmol/L (136-145); TOT PROT 7.2 g/dl (6.4-8.2)
[2018-05-20 23:58] LABS: INR 1.03 (0.83-1.09); PROTHROMBIN TIME (PATIENT) 12.2 SEC (9.7-13.0)
[2018-05-21] MEDS ORDERED: ACETAMINOPHEN 1000 MG/100 ML VIAL (NON FORMULARY) IVPB ONE (01:14)
[2018-05-21] MEDS ORDERED: LIDOCAINE 1%/EPI 1:100000 (20 ML MULTI DOSE VIAL) ONE (01:52)
[2018-05-21] MEDS ORDERED: ACETAMINOPHEN INJECTION 100 ML IVPB ONE (02:32)
[2018-05-21 02:33] LABS: GLUCOSE,CSF 56 mg/dL (40-70)
[2018-05-21] MEDS ORDERED: LIDOCAINE HCL 1%, 10 MG/ML (50 mL VIAL) SQ ONE (02:46)
[2018-05-21 03:24] LABS: CSF APPEARANCE CLEAR
[2018-05-21 03:25] LABS: CSF COLOR COLORLESS; CSF WBC 1
== END 2018-05-21 04:55 | disposition home or self-care (01) ==
LOC: JER 19:53
PROC: 3E0337Z Introduction of Electrolytic and Water Balance Substance into Peripheral Vein, Percutaneous Approach (ICD-10-PCS; principal; 2018-05-20)
PROC: 3E033GC Introduction of Other Therapeutic Substance into Peripheral Vein, Percutaneous Approach (ICD-10-PCS; 2018-05-20)
PROC: 3E033NZ Introduction of Analgesics, Hypnotics, Sedatives into Peripheral Vein, Percutaneous Approach (ICD-10-PCS; 2018-05-20)
PROC: 3E023NZ Introduction of Analgesics, Hypnotics, Sedatives into Muscle, Percutaneous Approach (ICD-10-PCS; 2018-05-20)
DX: R51 Headache (principal); Z87.891 Personal history of nicotine dependence; K21.9 Gastro-esophageal reflux disease without esophagitis; E11.9 Type 2 diabetes mellitus without complications
CPT/HCPCS: 36415; 70450-TC; 80053; 82945; 84157; 85025; 85610; 85730; 96361; 96372; 96374; 96375; 99281-25; J0131; J7030

== ENCOUNTER 2019-08-13 18:10 | Emergency (ER) | payer OTHER ==
[2019-08-13 18:24] VITALS: TEMP 98; BMI 32.6
[2019-08-13 20:12] LABS: BASO % 0.9 % (0-2.0); EOS % 0.8 % (0-4.5); HEMATOCRIT 37.1 % (32.4-45.2); HEMOGLOBIN 12.6 GM/dL (10.7-15.3); LYMPH % 35.6 % (8-40); MCH 30.9 pg (25.7-33.7); MCHC 33.9 g/dl (32.0-36.0); MEAN CELL VOLUME 91.2 fl (80-96); MEAN PLT VOLUME 8.5 fl (7.5-11.1); NEUT % 56.7 % (42.8-82.8); PLATELET COUNT 242 K/MM3 (134-434); RBC 4.06 M/mm3 (3.60-5.2); RDW 12.2 % (11.6-15.6)
[2019-08-13 20:30] LABS: PH,URINE 5.5 (5.0-8.0); URINE APPEARANCE CLOUDY; URINE BILIRUBIN NEGATIVE (NEGATIVE); URINE COLOR YELLOW; URINE GLUCOSE (UA) TRACE (NEGATIVE); URINE KETONE TRACE (NEGATIVE); URINE LEUK ESTERASE NEGATIVE (NEGATIVE); URINE NITRITE NEGATIVE (NEGATIVE); URINE PROTEIN NEGATIVE (NEGATIVE)
--- NOTE | 2019-08-13 21:04 | PDOC ---
Documentation entered by uLis M Bansal SCRIBE, acting as scribe for Salima Larose MD. Salima Larose MD: This documentation has been prepared by the Rolf olmstead Daniel, SCRIBE, under my direction and personally reviewed by me in its entirety. I confirm that the documentation accurately reflects all work, treatment, procedures, and medical decision making performed by me. History of Present Illness - General Chief Complaint: Pain Stated Complaint: 8 WEEKS /L/ABD/PAIN Time Seen by Provider: 08/13/19 18:38 History Source: Patient Exam Limitations: No Limitations - History of Present Illness Initial Comments: 08/13/19 19:10 The patient is a 34 year old 8 week female with a past medical history of gestational diabetes, (2011), and gastric sleeve (2017, Jazmine Tejeda) here today for evaluation of left upper quadrant abdominal pain. The patient reports that her abdominal pain started suddenly today and describes it as sharp and localized to lateral aspect just under her lateral rib cage. She states that her LMP was on 06/14/19 and that she went to [facility] last weekend to confirm her and has a follow up appointment with them. Patient denies headache, lightheadedness. Denies fever, chills. Denies chest pain, shortness of breath. Denies nausea, vomiting, diarrhea. Allergies: NKDA, walnut Past History - Past Medical History Allergies/Adverse Reactions: Allergies Allergy/AdvReac Type Severity Reaction Status Date / Time No Known Drug Allergies Allergy Verified 08/13/19 18:22 walnut Allergy "TIGHT Verified 08/13/19 18:22 THROAT,DIFFICULTY BREATHING" Home Medications: Ambulatory Orders Calcium Carbonate [Calcium] 1,000 mg PO DAILY 10/25/17 Cholecalciferol (Vitamin D3) [Vitamin D3] 1,000 unit PO DAILY 10/25/17 Cyanocobalamin [Vitamin B12 -] 1,000 mcg PO DAILY 10/25/17 Folic Acid 1 mg PO DAILY 10/25/17 Iron 18 mg PO DAILY 10/25/17 Fluticasone Prop 0.05% Nasal [Flonase -] 1 - 2 spray NS DAILY #1 spray.pump 06/26 Anemia: Yes (DURING ) Asthma: No Cancer: No Cardiac Disorders: No CVA: No COPD: No CHF: No Dementia: No Diabetes: Yes GI Disorders: Yes (ACID REFLUX) Disorders: No HTN: No Hypercholesterolemia: No Liver Disease: No Seizures: No Thyroid Disease: No - Surgical History Gastric Stapling: Yes (2018) - Reproductive History (#): 1 Para: 1 Therapeutic (s) & number: No Spontaneous : 0 - Immunization History Immunization Up to Date: Yes - Psycho Social/Smoking Cessation Hx Smoking History: Never smoked Have you smoked in the past 12 months: No Number of Cigarettes Smoked Daily: 4 If you are a former smoker, when did you quit?: 3WEEKS 'Breaking Loose' booklet given: 04/28/17 Hx Alcohol Use: Yes (OCCAS) Drug/Substance Use Hx: No Substance Use Type: Alcohol Hx Substance Use Treatment: No Review of Systems - Review of Systems Able to Perform ROS?: Yes Comments:: 08/13/19 19:11 CONSTITUTIONAL: Absent: fever, chills, diaphoresis, generalized weakness, malaise, loss of appetite HEENT: Absent: rhinorrhea, nasal congestion, throat pain, throat swelling, difficulty swallowing, mouth swelling, ear pain, eye pain, visual Changes CARDIOVASCULAR: Absent: chest pain, syncope, palpitations, irregular heart rate, lightheadedness , peripheral edema RESPIRATORY: Absent: cough, shortness of breath, dyspnea with exertion, orthopnea, wheezing, stridor, hemoptysis GASTROINTESTINAL: +left upper quadrant abdominal pain Absent: abdominal distension, nausea, vomiting, diarrhea, constipation, melena, hematochezia GENITOURINARY: Absent: dysuria, frequency, urgency, hesitancy, hematuria, flank pain, genital pain MUSCULOSKELETAL: Absent: myalgia, arthralgia, joint swelling SKIN: Absent: rash, itching, pallor HEMATOLOGIC/IMMUNOLOGIC: Absent: easy bleeding, easy bruising, lymphadenopathy, frequent infections ENDOCRINE: Absent: unexplained weight gain, unexplained weight loss, heat intolerance, cold intolerance NEUROLOGIC: Absent: headache, focal weakness or paresthesias, dizziness, unsteady gait, seizure, mental status changes, bladder or bowel incontinence PSYCHIATRIC: Absent: anxiety, depression, suicidal or homicidal ideation, hallucinations. *Physical Exam - Vital Signs Last Vital Signs Temp Pulse Resp BP Pulse Ox 98 F 70 18 119/63 98 08/13/19 18:18 08/13/19 18:18 08/13/19 18:18 08/13/19 18:18 08/13/19 18:18 - Physical Exam 08/13/19 19:11 GENERAL: Well developed, well nourished. Awake and alert. No acute distress. HEENT: Normocephalic, atraumatic. PERRLA, EOMI. No conjunctival pallor. Sclera are non- icteric. Moist mucous membranes. Oropharynx is clear. NECK: Supple. Full ROM. No JVD. Carotid pulses 2+ and symmetric, without bruits. No thyromegaly. No lymphadenopathy. CARDIOVASCULAR: Regular rate and rhythm. No murmurs, rubs, or gallops. Distal pulses are 2+ and symmetric. PULMONARY: No evidence of respiratory distress. Lungs clear to auscultation bilaterally. No wheezing, rales or rhonchi. ABDOMINAL: +focal left upper quadrant abdominal tenderness on the lateral aspect just under the rib cage Soft. Non-distended. No rebound or guarding. No organomegaly. Normoactive bowel sounds. MUSCULOSKELETAL Normal range of motion at all joints. No bony deformities or tenderness. No CVA tenderness. EXTREMITIES: No cyanosis. No clubbing. No edema. No calf tenderness. SKIN: Warm and dry. Normal capillary refill. No rashes. No jaundice. NEUROLOGICAL: Alert, awake, appropriate. Cranial nerves 2-12 intact. No deficits to light touch and temperature in face, upper extremities and lower extremities. No motor deficits in the face, upper extremities and lower extremities. Normoreflexic in the upper and lower extremities. Normal speech. Toes are down- going bilaterally. Gait is normal without ataxia. PSYCHIATRIC: Cooperative. Good eye contact. Appropriate mood and affect. ED Treatment Course - LABORATORY CBC & Chemistry Diagram: 08/13/19 20:00 08/13/19 20:00 - ADDITIONAL ORDERS Additional order review: Laboratory Results 08/13/19 08/13/19 08/13/19 20:00 20:00 20:00 Lipase 102 Beta HCG, Quant Cancelled Urine Color Yellow Urine Appearance Cloudy Urine pH 5.5 Ur Specific [place] 1.032 Urine Protein Negative Urine Glucose (UA) Trace Urine Ketones Trace H Urine Blood Negative Urine Nitrite Negative Urine Bilirubin Negative Urine Urobilinogen 1.0 Ur Leukocyte Esterase Negative 08/13/19 20:00 RBC 4.06 MCV 91.2 MCHC 33.9 RDW 12.2 MPV 8.5 Neutrophils % 56.7 Lymphocytes % 35.6 Monocytes % 6.0 Eosinophils % 0.8 Basophils % 0.9 - RADIOLOGY Radiology Studies Ordered: Category Date Time Status TRANSVAGINAL US PREG [US] Stat Ultrasound 08/13/19 19:58 Ordered Medical Decision Making - Medical Decision Making 08/13/19 19:36 Dr. Lucero was paged and returned call, case discussed. Dr. Lucero does not believe the patient's current condition is related to her gastric sleeve and states that nothing surgical would need to be done. On reassessment patient is feeling better. 08/13/19 21:04 Urinalysis is negative CBC is unremarkable 08/13/19 21:43 Pelvic US: Single intrauterine gestational sac containing a yolk sac and corresponding to approximately 5 weeks and 4 days. No pole or cardiac activity is noted at this time.No large ovarian cysts. Duplex Ultrasound: Appropriate arterial and/or venous flow are noted in both ovaries, making torsion unlikely at this time. No significant free pelvic fluid. 08/13/19 21:50 bhcg >5000 she has no cramping or vaginal bleeding during this presentation Discharge - Discharge Information Problems reviewed: Yes Clinical Impression/Diagnosis: Early stage of Right upper quadrant abdominal tenderness Qualifiers: Presence of rebound: not specified Qualified Code(s): R10.811 - Right upper quadrant abdominal tenderness Condition: Stable Disposition: HOME - Follow up/Referral Referrals: Jimena Alvarenga MD [Staff Physician] - - Patient Discharge Instructions Patient Printed Discharge Instructions: DI for -- Discomforts and Remedies, DI for Abdominal Pain -- Early Additional Instructions: Please keep your Aug 22 center specialists appointment Return for pelvic cramping accompanied by vaginal bleeding or worsening pain - Post Discharge Activity
[2019-08-13 21:14] LABS: ALBUMIN 3.8 g/dl (3.4-5.0); BILIRUBIN,TOTAL 0.1 mg/dL (0.2-1); BLOOD UREA NITROGEN 13.9 mg/dL (7-18); CALCIUM 8.6 mg/dL (8.5-10.1); CREATININE 0.6 mg/dL (0.55-1.3); POTASSIUM 3.8 mmol/L (3.5-5.1); TOT PROT 7.2 g/dl (6.4-8.2)
[2019-08-13 22:45] VITALS: BP 99/58; PULSE 75
== END 2019-08-13 22:35 | disposition home or self-care (01) ==
LOC: JER 18:10
DX: O26.891 Other specified pregnancy related conditions, first trimester (principal); R10.811 Right upper quadrant abdominal tenderness; Z3A.01 Less than 8 weeks gestation of pregnancy; Z86.32 Personal history of gestational diabetes; Z98.84 Bariatric surgery status; K21.9 Gastro-esophageal reflux disease without esophagitis
CPT/HCPCS: 36415; 76817-TC; 80053; 81003; 83690; 84702; 85025; 99283-25

== ENCOUNTER 2019-09-11 08:22 | Emergency (ER) | payer OTHER ==
[2019-09-11 08:35] VITALS: BP 91/55; PULSE 97; TEMP 98.6; BMI 33.0
[2019-09-11] MEDS ORDERED: SODIUM CHLORIDE 1,000 ML IV STA (09:50)
[2019-09-11] MEDS ORDERED: ACETAMINOPHEN 325 MG TABLET (FP) PO ONE (09:50)
--- NOTE | 2019-09-11 09:50 | PDOC ---
History of Present Illness - General Chief Complaint: Cold Symptoms Stated Complaint: Cold Symptoms Time Seen by Provider: 09/11/19 09:08 History Source: Patient Exam Limitations: No Limitations Past History - Travel Traveled outside of the country in the last 30 days: No Close contact w/someone who was outside of country & ill: No - Past Medical History Allergies/Adverse Reactions: Allergies Allergy/AdvReac Type Severity Reaction Status Date / Time No Known Drug Allergies Allergy Verified 09/11/19 08:31 walnut Allergy "TIGHT Verified 09/11/19 08:31 THROAT,DIFFICULTY BREATHING" Home Medications: Ambulatory Orders Calcium Carbonate [Calcium] 1,000 mg PO DAILY 10/25/17 Cholecalciferol (Vitamin D3) [Vitamin D3] 1,000 unit PO DAILY 10/25/17 Cyanocobalamin [Vitamin B12 -] 1,000 mcg PO DAILY 10/25/17 Folic Acid 1 mg PO DAILY 10/25/17 Iron 18 mg PO DAILY 10/25/17 Fluticasone Prop 0.05% Nasal [Flonase -] 1 - 2 spray NS DAILY #1 spray.pump 05/19/18 Amoxicillin - [Amoxicillin 500mg Capsule -] 500 mg PO BID #14 capsule 09/11/19 Oseltamivir Phosphate [Tamiflu] 75 mg PO BID #10 capsule 09/11/19 Anemia: Yes (DURING ) Asthma: No Cancer: No Cardiac Disorders: No CVA: No COPD: No CHF: No Dementia: No Diabetes: Yes GI Disorders: Yes (ACID REFLUX) Disorders: No HTN: No Hypercholesterolemia: No Liver Disease: No Seizures: No Thyroid Disease: No - Surgical History Gastric Stapling: Yes (2017) - Reproductive History (#): 1 Para: 1 Therapeutic (s) & number: No Spontaneous : 0 - Immunization History Immunization Up to Date: Yes - Psycho Social/Smoking Cessation Hx Smoking History: Never smoked Have you smoked in the past 12 months: No Number of Cigarettes Smoked Daily: 4 If you are a former smoker, when did you quit?: 3WEEKS Information on smoking cessation initiated: No 'Breaking Loose' booklet given: 04/28/17 Hx Alcohol Use: No Drug/Substance Use Hx: No Substance Use Type: Alcohol Hx Substance Use Treatment: No Review of Systems - Review of Systems Able to Perform ROS?: Yes Comments:: 09/11/19 09:45 CONSTITUTIONAL: Present: Fever, chills, body aches Absent: diaphoresis, generalized weakness, malaise, loss of appetite HEENT: Present: rhinorrhea, nasal congestion, throat pain, ear pain Absent: difficulty swallowing, mouth swelling, eye pain, visual Changes CARDIOVASCULAR: Absent: chest pain, loss of consciousness, palpitations, irregular heart rate, peripheral edema RESPIRATORY: Absent: cough, shortness of breath, dyspnea with exertion, orthopnea, wheezing, stridor, hemoptysis GASTROINTESTINAL: Absent: abdominal pain, abdominal distension, nausea, vomiting, diarrhea, constipation, melena, hematochezia SKIN: Absent: rash, itching, pallor NEUROLOGIC: Present: headache Absent: focal weakness or paresthesias, dizziness, unsteady gait, seizure, mental status changes, bladder or bowel incontinence Is the patient limited Israeli proficient: No *Physical Exam - Vital Signs Last Vital Signs Temp Pulse Resp BP Pulse Ox 98.6 F 97 H 17 91/55 L 98 09/11/19 08:32 09/11/19 08:32 09/11/19 08:32 09/11/19 08:32 09/11/19 08:32 - Physical Exam 09/11/19 09:47 GENERAL: The patient is awake, alert, and fully oriented, in no acute distress. HEAD: Normal with no signs of trauma. EYES: Pupils equal, round and reactive to light, extraocular movements intact, sclera anicteric, conjunctiva clear. HEENT: No nasal congestion or rhinorrhea. No sinus Tenderness. Mucous membranes are moist. No tonsillar erythema, exudate or edema. Uvula is midline. (+) b/l TM bulging, dullness and erythema CARDIOVASCULAR: Regular rate and rhythm. No murmurs, rubs, or gallops. Distal pulses are 2+ and symmetric. PULMONARY: No evidence of respiratory distress. Lungs clear to auscultation bilaterally. No wheezing, rales or rhonchi. EXTREMITIES: Normal range of motion, no edema. NEUROLOGICAL: Normal speech, normal gait. PSYCH: Normal mood, normal affect. SKIN: Warm, Dry, normal turgor, no rashes or lesions noted. General Appearance: Yes: Nourished Medical Decision Making - Medical Decision Making 09/11/19 09:48 Patient is 34-year-old female, currently 3 months , presents to the ER with 2 days of fevers, chills, nausea, sore throat and earache. She states her son was recently diagnosed with flu B. She is concerned she has similar symptoms. She states she feels short of breath. Denies abdominal pain, vomiting, vaginal bleeding and dysuria. A/P: Flulike symptoms On exam patient appears to have a bilateral otitis media. We will treat for the ear infection. Defer strep swab as we are going to treat for the ear infection. Sore throat likely due to strep given ear infection Flu swab sent. We will give breathing treatment and Tylenol Reevaluate 09/11/19 10:38 Patient is flu a positive. Per up-to-date, as patient is I will treat with Tamiflu. Medication for ear infection and Tamiflu sent to patient's pharmacy. 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 Discharge home I discussed the physical exam findings, ancillary test results and final diagnoses with the patient. I answered all of the patient's questions. The patient was satisfied with the care received and felt comfortable with the discharge plan and treatment plan. The Patient agrees to follow up with the primary care physician/specialist within 24-72 hours. Return precautions were given. Discharge - Discharge Information Problems reviewed: Yes Clinical Impression/Diagnosis: Influenza, Early stage of Otitis media Qualifiers: Otitis media type: suppurative Chronicity: acute Laterality: bilateral Recurrence: non-recurrent Spontaneous tympanic membrane rupture: without spontaneous rupture Qualified Code(s): H66.003 - Acute suppurative otitis media without spontaneous rupture of ear drum, bilateral Condition: Stable Disposition: HOME - Admission No - Follow up/Referral Referrals: Wilfredo Ochoa MD [Staff Physician] - - Patient Discharge Instructions Patient Printed Discharge Instructions: DI for Influenza -- Adult, Middle Ear Infection Additional Instructions: You have the flu. This is a virus that will get better on its own in approximately 7-10 days. You will most likely have a fever for 7-10 days because of the flu. This is to be expected. Drink plenty of fluids to prevent dehydration and get plenty of rest. Warm tea and cough drops may help your symptoms as well. Take the tamiflu twice a day for 5 days to help reduce the symptoms of the flu. This medication will not cure the flu. You also have a double ear infection. Please take the amoxicillin as directed for 1 week. Take Tylenol 650 mg every 6 hours as needed for fever or pain. Take all other medications as prescribed. Follow up with your primary care doctor this week Return to the ED for difficulty breathing, shortness of breath, weakness, or if you have any other changes in your symptoms. - Post Discharge Activity Work/Back to School Note: Back to Work
[2019-09-11] MEDS ORDERED: ACETAMINOPHEN 325 MG TABLET (FP) ONE (10:01)
== END 2019-09-11 10:48 | disposition home or self-care (01) ==
LOC: JERFT 08:22 → JER 08:22 → JERFT 10:48
PROC: 3E0337Z Introduction of Electrolytic and Water Balance Substance into Peripheral Vein, Percutaneous Approach (ICD-10-PCS; principal; 2019-09-11)
DX: O99.89 Other specified diseases and conditions complicating pregnancy, childbirth and the puerperium (principal); J09.X2 Influenza due to identified novel influenza A virus with other respiratory manifestations; H66.003 Acute suppurative otitis media without spontaneous rupture of ear drum, bilateral; Z3A.01 Less than 8 weeks gestation of pregnancy; Z87.891 Personal history of nicotine dependence; Z91.018 Allergy to other foods
CPT/HCPCS: 87804; 96360; 99282-25; J7030

== ENCOUNTER 2020-03-08 19:34 | Emergency (ER) | payer OTHER ==
--- NOTE | 2020-03-08 19:48 | PDOC ---
Rapid Medical Evaluation Chief Complaint: Abscess Boil Time Seen by Provider: 03/08/20 19:42 Medical Evaluation: Allergies Allergy/AdvReac Type Severity Reaction Status Date / Time No Known Drug Allergies Allergy Verified 03/08/20 19:44 walnut Allergy "TIGHT Verified 03/08/20 19:44 THROAT,DIFFICULTY BREATHING" Vital Signs Temp Pulse Resp BP Pulse Ox 98.6 F 89 18 135/73 98 03/08/20 19:37 03/08/20 19:37 03/08/20 19:37 03/08/20 19:37 03/08/20 19:37 03/08/20 19:44 I have performed a brief in-person evaluation of this patient. The patient presents with a chief complaint of:labial abscess, currently Pertinent physical exam findings:stable I have ordered the following:nothing The patient will proceed to the ED for further evaluation. Discharge Disposition - Diagnosis Labial abscess - Referrals - Patient Instructions - Post Discharge Activity
[2020-03-08 19:49] VITALS: BP 135/73; PULSE 89; TEMP 98.6; BMI 36.8
--- NOTE | 2020-03-08 20:27 | PDOC ---
History of Present Illness - General Chief Complaint: Abscess Boil Stated Complaint: ABSCESS Time Seen by Provider: 03/08/20 19:42 History Source: Patient Exam Limitations: No Limitations - History of Present Illness Initial Comments: 03/08/20 20:22 Patient is a 34-year-old female who is 36 weeks gestation, G2, P1, who presents to the ED with an abscess that she noticed 3 days ago. She states over the last day the abscess is gotten bigger and more painful. 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 She denies any fevers or chills. She denies any drainage. She has been soaking in warm water soaks without any relief of the abscess. She does have gestational diabetes, no allergies to medications. Past History - Medical History Allergies/Adverse Reactions: Allergies Allergy/AdvReac Type Severity Reaction Status Date / Time No Known Drug Allergies Allergy Verified 03/08/20 19:44 walnut Allergy "TIGHT Verified 03/08/20 19:44 THROAT,DIFFICULTY BREATHING" Home Medications: Ambulatory Orders Calcium Carbonate [Calcium] 1,000 mg PO DAILY 10/25/17 Cholecalciferol (Vitamin D3) [Vitamin D3] 1,000 unit PO DAILY 10/25/17 Cyanocobalamin [Vitamin B12 -] 1,000 mcg PO DAILY 10/25/17 Folic Acid 1 mg PO DAILY 10/25/17 Iron 18 mg PO DAILY 10/25/17 Fluticasone Prop 0.05% Nasal [Flonase -] 1 - 2 spray NS DAILY #1 spray.pump 05/19/18 Amoxicillin - [Amoxicillin 500mg Capsule -] 500 mg PO BID #14 capsule 09/11/19 Oseltamivir Phosphate [Tamiflu] 75 mg PO BID #10 capsule 09/11/19 Cephalexin [Keflex] 500 mg PO BID #14 capsule 03/08/20 Anemia: Yes (DURING ) Asthma: No Cancer: No Cardiac Disorders: No CVA: No COPD: No CHF: No Dementia: No Diabetes: Yes GI Disorders: Yes (ACID REFLUX) Disorders: No HTN: No Hypercholesterolemia: No Liver Disease: No Seizures: No Thyroid Disease: No - Surgical History Gastric Stapling: Yes (2018) - Reproductive History (#): 1 Para: 1 Therapeutic (s) & number: No Spontaneous : 0 - Immunization History Immunization Up to Date: Yes - Psycho-Social/Smoking History Smoking History: Never smoked Have you smoked in the past 12 months: No Number of Cigarettes Smoked Daily: 4 If you are a former smoker, when did you quit?: 3WEEKS 'Breaking Loose' booklet given: 04/28/17 - Substance Abuse Hx (Audit-C & DAST Scrn) How often the patient has a drink containing alcohol: Never Score: In Men: 4 or > Positive; In Women: 3 or > Positive: 0 Screen Result (Pos requires Nsg. Audit-10AR): Negative Review of Systems - Review of Systems Comments:: 03/08/20 20:23 - Review of Systems Able to Perform ROS?: Yes Constitutional: No: Fever, Chills, Loss of Appetite, Night Sweats, Weakness HEENTM: No: Eye Pain, Vision changes, Ear Pain, Throat Pain, Throat Swelling, Mouth Pain, Difficulty Swallowing Respiratory: No: Cough, Shortness of Breath, Wheezing, Sputum Production Cardiac (ROS): No: Chest Pain, Chest Tightness, Palpitations, Irregular Heart Beat, Edema ABD/GI: No: Nausea, Vomiting, Abdominal Pain, Diarrhea : No Dysuria, No Hematuria, No Frequency, No Urgency, No Vaginal Discharge/Pain Musculoskeletal: No: Muscle Pain, Back Pain, Joint Pain, Muscle Weakness, Neck Pain Integumentary: No: Lesions, Rash; right labial abscess Neurological: No: Headache, Numbness, Tingling, Weakness, Speech Difficulties *Physical Exam - Vital Signs Last Vital Signs Temp Pulse Resp BP Pulse Ox 98.6 F 89 18 135/73 98 03/08/20 19:37 03/08/20 19:37 03/08/20 19:37 03/08/20 19:37 03/08/20 19:37 - Physical Exam 03/08/20 20:23 - Physical Exam General Appearance: Nourished, Appropriately Dressed, No Distress HEENT: EOMI, Normal Voice, Hearing Grossly Normal Neck: Supple, No Lymphadenopathy (R), No Lymphadenopathy (L), No Rigidity, No Decreased range of motion Respiratory/Chest: Lungs Clear, Normal Breath Sounds. No Respiratory Distress, No Accessory Muscle Use Cardiovascular: Regular Rhythm, Regular Rate, S1, S2 Gastrointestinal/Abdominal: Gravid uterus Musculoskeletal: Normal Inspection. No Decreased Range of Motion Extremity: Normal Capillary Refill, Normal Inspection Integumentary: Normal Color, Dry. No Rash; 3 cm area of fluctuance in the right labial skin fold abutting the thigh. There is no surrounding cellulitis appreciated. Significant tenderness to palpation. Right labial swelling appreciated. 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 Plan: -I&D right labial abscess performed in the ED with quarter inch iodoform packing placed -Wound care discussed with the patient -She will return in 2 to 3 days for repeat evaluation and packing change if she is unable to follow-up with her SUPERVISOR [employer] -We will send a prescription of Keflex to the patient's pharmacy -The patient understands and agrees with this treatment plan and she is stable for discharge. Discharge - Discharge Information Problems reviewed: Yes Clinical Impression/Diagnosis: Labial abscess Condition: Stable Disposition: HOME - Additional Discharge Information Prescriptions: Cephalexin [Keflex] 500 mg PO BID #14 capsule - Follow up/Referral Referrals: Nathalia Newman MD [Primary Care Provider] - - Patient Discharge Instructions Patient Printed Discharge Instructions: DI for Incision and Drainage of a Skin Abscess Additional Instructions: Keep the wound clean and dry. You may shower but keep the gauze intact until you are done showering to protect the packing. Change the gauze after you shower. Follow-up with your SUPERVISOR [employer] for a packing change or in the emergency department for a packing change in 2 to 3 days. Take the antibiotics as prescribed. Return immediately for high fevers, shaking chills, increased pain, red streaking or any other worsening symptoms. - Post Discharge Activity
== END 2020-03-08 20:57 | disposition home or self-care (01) ==
LOC: JERFT 19:34 → JER 19:34 → JERFT 20:57
DX: N76.4 Abscess of vulva (principal)
CPT/HCPCS: 99283-25

== ENCOUNTER 2020-03-10 08:49 | Emergency (ER) | payer OTHER ==
[2020-03-10 08:55] VITALS: BP 138/74; PULSE 90; TEMP 98; BMI 34.5
--- NOTE | 2020-03-10 09:45 | PDOC ---
Suture Removal/Wound Check HPI - History of Present Illness Chief Complaint: Revisit,Wound Recheck Stated Complaint: WOUND CHECK Time Seen by Provider: 03/10/20 09:25 History Source: Yes: Patient Treated at: [facility] Date of Last ED visit: 02/09/20 - Previous ED Treatment Type of procedure performed on last visit: Yes: I&D of Abscess Tetanus Immunization: Yes: Up to Date Past History - Medical History Allergies/Adverse Reactions: Allergies Allergy/AdvReac Type Severity Reaction Status Date / Time No Known Drug Allergies Allergy Verified 03/10/20 08:55 walnut Allergy "TIGHT Verified 03/10/20 08:55 THROAT,DIFFICULTY BREATHING" Home Medications: Ambulatory Orders Calcium Carbonate [Calcium] 1,000 mg PO DAILY 10/25/17 Cholecalciferol (Vitamin D3) [Vitamin D3] 1,000 unit PO DAILY 10/25/17 Cyanocobalamin [Vitamin B12 -] 1,000 mcg PO DAILY 10/25/17 Folic Acid 1 mg PO DAILY 10/25/17 Iron 18 mg PO DAILY 10/25/17 Fluticasone Prop 0.05% Nasal [Flonase -] 1 - 2 spray NS DAILY #1 spray.pump 05/19/18 Amoxicillin - [Amoxicillin 500mg Capsule -] 500 mg PO BID #14 capsule 09/11/19 Oseltamivir Phosphate [Tamiflu] 75 mg PO BID #10 capsule 09/11/19 Cephalexin [Keflex] 500 mg PO BID #14 capsule 03/08/20 Anemia: Yes (DURING ) Asthma: No Cancer: No Cardiac Disorders: No CVA: No COPD: No CHF: No Dementia: No Diabetes: Yes GI Disorders: Yes (ACID REFLUX) Disorders: No HTN: No Hypercholesterolemia: No Liver Disease: No Seizures: No Thyroid Disease: No - Surgical History Gastric Stapling: Yes (2018) - Reproductive History (#): 1 Para: 1 Therapeutic (s) & number: No Spontaneous : 0 - Immunization History Immunization Up to Date: Yes - Psycho-Social/Smoking History Smoking History: Never smoked Have you smoked in the past 12 months: No Number of Cigarettes Smoked Daily: 4 If you are a former smoker, when did you quit?: 3WEEKS 'Breaking Loose' booklet given: 04/28/17 - Substance Abuse Hx (Audit-C & DAST Scrn) How often the patient has a drink containing alcohol: Never Score: In Men: 4 or > Positive; In Women: 3 or > Positive: 0 Screen Result (Pos requires Nsg. Audit-10AR): Negative *Review of Systems - Review of Systems Constitutional: No: Chills, Fever *Physical Exam - Vital Signs Last Vital Signs Temp Pulse Resp BP Pulse Ox 98 F 90 18 138/74 100 03/10/20 08:50 03/10/20 08:50 03/10/20 08:50 03/10/20 08:50 03/10/20 08:50 - Physical Exam General Appearance: Yes: Appropriately Dressed. No: Apparent Distress HEENT: positive: Normal Voice Neck: positive: Supple Respiratory/Chest: negative: Respiratory Distress Integumentary: positive: Dry, Warm, Other (well healing abscess to R groin w/ packing in place, no active drainage, no surrounding erythema) Neurologic: positive: Fully Oriented, Alert, Normal Mood/Affect Medical Decision Making - Medical Decision Making 03/10/20 09:45 34 yo F, no sig hx, here for wound check of abscess. 36 weeks and was seen here for R groin abscess 2 days ago, had packing placed and on keflex. Sta aman pain sig better. No erythema to site. No f/c. On exam, pt well letha w/ well healing abscess to r groin. packing removed w/ no active drainage, no e/o re- accumulation. Local wound care/dressing. To continue abx and f/u with LEARNING ENGINEER Discharge - Discharge Information Problems reviewed: Yes Clinical Impression/Diagnosis: Wound check, abscess Condition: Good Disposition: HOME - Follow up/Referral Referrals: Nathalia Newman MD [Primary Care Provider] - - Patient Discharge Instructions Additional Instructions: Your wound is healing well You can start to apply warm soaks to site frequently throughout the day Continue taking antibiotics Continue to follow up with your LEARNING ENGINEER - Post Discharge Activity
== END 2020-03-10 11:53 | disposition home or self-care (01) ==
LOC: JERFT 08:49 → JER 08:49 → JERFT 11:53
DX: L02.214 Cutaneous abscess of groin (principal)
CPT/HCPCS: 99281-25

== ENCOUNTER 2020-04-01 08:00 | Inpatient (IN) | payer OTHER ==
[2020-04-01 08:37] VITALS: BMI 33.5
[2020-04-01] MEDS ORDERED: OXYTOCIN 20 UNITS in 0.9% NS 40 UNIT/2,000 ML INFUS.BAG IV ONE (08:37)
[2020-04-01] MEDS ORDERED: ELECTROLYTE-148 SOLN 500 ML IV ONE (08:45)
[2020-04-01] MEDS ORDERED: CITRIC ACID/SODIUM CITRATE 30 ML UNIT-DOSE CUP PO ONE (08:45)
--- NOTE | 2020-04-01 08:50 | HP ---
Past Medical History - Admission Chief Complaint: Scheduled ERCS BTL History of Present Illness: 34yo @ 39wks by LMP/sono here for scheduled RLTCS No VB/LOF. No ctx. +FM Preg c/b: GDMA1- diagnosed early (GTT 219), polyhydramnios, suspected macrosomia, prior C/S PNC @ [address] History Source: Patient Limitations to Obtaining History: No Limitations - Past Medical History SPA CONCIERGE: No: Alzheimer's, CVA, Dementia, Migraine, Multiple Sclerosis, Peripheral Neuropathy, Parkinson's, Seizure, Syncope, TIA, Vertigo, Other Cardiovascular: No: AFIB, Aneurysm, Aortic Insufficiency, Aortic Stenosis, CAD, CHF, Deep Vein Thrombosis, HTN, Hyperlipdemia, [place], Mitral Insufficiency, Mitral Stenosis, Murmur, Pulmonary Hypertension, Other Pulmonary: Yes: Sleep Apnea. No: Asthma, Bronchitis, Cancer, COPD, O2 Dependent, Pneumonia, Previously Intubated, Pulmonary Embolus, Pulmonary Fibrosis, Other Gastrointestinal: Yes: Other (Morbido obesity) ...: 2 ...Para: 1 ...Term: 1 ...: 0 ...Spon : 0 ...Induced : 0 ...Living Children: 1 ...LMP: 06/14/19 ... Weeks Gestation by Dates: 41.5 ...EDC by Dates: 03/20/20 ...EDC by Sono: 04/05/20 Heme/Onc: No: Anemia, B12 Deficiency, Bleeding Disorder, Cancer, Current Chemotherapy, Current Radiation Therapy, Hemochromatosis, Hypercoaguable State, Myeloproliferative Synd, Sickle Cell Disease, Sickle Cell Trait, Thrombocytopenia, Other Infectious Disease: No: AIDS, C-Diff, Herpes Zoster, HIV, MRSA, STD's, Tuberculosis, VREF, Other Psych: No: Addictions, Anxiety, Bipolar, Depression, Panic, Psychosis, Schizophrenia, Other Endocrine: Yes: Diabetes Mellitus - Past Surgical History Past Surgical History: Yes: Hx Myomectomy: No Hx Transabdominal Cerclage: No - Smoking History Smoking history: Former smoker Have you smoked in the past 12 months: No Aproximately how many cigarettes per day: 4 If you are a former smoker, when did you quit?: 3WEEKS - Alcohol/Substance Use Hx Alcohol Use: No Home Medications - Allergies Allergies/Adverse Reactions: Allergies Allergy/AdvReac Type Severity Reaction Status Date / Time No Known Drug Allergies Allergy Verified 04/01/20 10:00 walnut Allergy "TIGHT Verified 04/01/20 10:00 THROAT,DIFFICULTY BREATHING" - Home Medications Home Medications: Ambulatory Orders Iron 18 mg PO DAILY 10/25/17 Mv-Mn/Iron/FA/Herbal/Digestive [ One Tablet] 1 tab PO DAILY 04/01/20 Physical Exam - Maternity Constitutional: Yes: Well Nourished, No Distress, Calm - Abdominal Exam/OB Number of Fetuses: Single Presentation: Vertex Contractions: No Category: I Accelerations: Non-Uniform Decelerations: None - Vaginal Exam/OB Vaginal Bleeding: No Speculum Exam: No - Physical Exam Edema: No Imaging - Results Ultrasound: Report Reviewed Assessment/Plan 34yo @ 39wks by sono, here for scheduled RLTCS and BTL Admit to L&D NPO, IVFs Ancef SCDs Mena. Risk of procedure reviewed including bleeding, infeciton, injury to surrounding tissue/organs. Risk of permanent nature of BTL and potential for regret reviewed. All questions answered. Consent signed. Katerine Alvarenga MD
[2020-04-01] MEDS ORDERED: DEXAMETHASONE SOD PHOSPHATE 4 MG/1 ML VIAL ONE (08:54)
[2020-04-01] MEDS ORDERED: ceFAZolin SODIUM 1 GM VIAL ONE (08:54)
[2020-04-01] MEDS ORDERED: PHENYLEPHRINE HCL 10 MG/1 ML SINGLE DOSE VIAL ONE (08:54)
[2020-04-01] MEDS ORDERED: morphine SULFATE/PF 0.5 MG/ML (2cc Syringe - QUVA) ONE (08:54)
[2020-04-01] MEDS ORDERED: NEOSTIGMINE METHYLSULFATE 0.5 MG/1 ML - 10 ML MDV ONE (08:54)
[2020-04-01] MEDS ORDERED: ELECTROLYTE-148 SOLN 1,000 ML IV SCH (09:00)
[2020-04-01] MEDS ORDERED: LIDOCAINE HCL/PF 2% SDV 5ML VIAL ONE (09:37)
[2020-04-01] MEDS ORDERED: OXYTOCIN 10 UNITS/ML VIAL ONE (09:42)
[2020-04-01] MEDS ORDERED: MIDAZOLAM HCL 2 MG/2 ML SINGLE DOSE VIAL ONE (09:54)
[2020-04-01] MEDS ORDERED: KETOROLAC TROMETHAMINE 30 MG/1 ML VIAL ONE (09:56)
[2020-04-01] MEDS ORDERED: oxyCODONE HCL 5 MG TABLET PO PRN (10:19)
[2020-04-01] MEDS ORDERED: IBUPROFEN 800 MG/8 ML IJ IVPB PRN (10:19)
[2020-04-01] MEDS ORDERED: METHYLERGONOVINE MALEATE 0.2 MG/1 ML AMP IM PRN (10:19)
--- NOTE | 2020-04-01 10:19 | OP ---
Operative Note - Note: Operative Date: 04/01/20 Pre-Operative Diagnosis: 39 week , Prior , GDMA1, Polyhydramnios, Desires Permanent Sterilization Operation: Repeat Low Transverse , Bilateral Tubal Ligation Post-Operative Diagnosis: Same as Pre-op Surgeon: Jimena Alvarenga Resource Program Teacher: Sammy Washington Anesthesiologist/SPLICER OPERATOR: Theresa Posey Anesthesia: Spinal Estimated Blood Loss (mls): 700 Drains, Volume Out (mls): 100 (clear urine) Operative Report Dictated: Yes
[2020-04-01] MEDS ORDERED: OXYTOCIN 20 UNITS in 0.9% NS 20 UNIT/1,000 ML INFUS.BAG IV SCH (10:30)
--- NOTE | 2020-04-01 11:24 | OP ---
DATE OF OPERATION: 04/01/2020 PREOPERATIVE DIAGNOSIS: A 39-week , prior section, gestational diabetes, polyhydramnios, desires permanent sterilization. POSTOPERATIVE DIAGNOSIS: A 39-week , prior section, gestational diabetes, polyhydramnios, desires permanent sterilization. PROCEDURE: 1. Repeat low transverse section. 2. Bilateral tubal ligation. SURGEON: Jimena Alvarenga MD SQL PROGRAMMER: HOLLY Thurman ANESTHESIA: NEW Royal ANESTHESIA TYPE: Spinal. ESTIMATED BLOOD LOSS: 700 IV FLUIDS: Per Anesthesia record. URINE OUTPUT: 100 mL of clear urine at the end of the procedure. FINDINGS: Viable male infant, LOT presentation. No nuchal. No meconium. Weight 9 pounds, 6 ounces; 's 9, 9. Normal tubes and ovaries bilaterally. COMPLICATIONS: None. CONDITION: Stable to recovery room. NATURE OF THE PROCEDURE: After the appropriate consents were signed, patient was taken to the operating room. Spinal anesthesia was administered. Sterile San catheter was inserted in the operating room. The abdomen was prepped and draped in normal sterile fashion. Timeout was performed confirming correct patient and procedure. A Pfannenstiel incision was made through the prior incision with a scalpel, carried through to the underlying layers until the fascia was nicked in the midline. The fascia was then extended laterally with the Ivan scissors. The inferior aspect of the fascia was grasped with a Mariama clamp, tented upwards and the rectus muscles were dissected off bluntly and with the Ivan scissors. Attention was then paid to the superior aspect which was taken down in a similar fashion. The rectus muscles were with a scalpel in the midline. The peritoneum was entered bluntly. Bladder flap was created with the Metzenbaum scissors and digitally. The bladder blade was inserted and adjusted. The uterus was incised in a low transverse fashion. Clear amniotic fluid was noted. The infant's head was delivered without difficulty as were the remaining shoulder and body. The cord was clamped and cut. The infant handed off to the awaiting NICU staff. The placenta was then removed manually. The uterus was cleared of all clot and debris. The uterus was then exteriorized. The hysterotomy was closed in a single layer with a 1-0 Vicryl in an imbricating fashion. In an area centrally the hysterotomy had to be reapproximated to achieve hemostasis. Attention was then paid to the tubal ligation. The patient's right fallopian tube was grasped with a Sree. The fallopian tube was inspected until its fimbriated edge. It was noted to be normal. In an area centrally the tube was then suture ligated with a 0 plain in a modified Kerry fashion. The tubal segment was removed. The stumps were then cauterized with the Bovie. Attention was then paid to the patient's left fallopian tube which was taken down in a similar fashion. The hysterotomy was inspected and noted to be hemostatic. The patient's uterus was then about to be returned to the abdominal cavity when an area on the patient's left fallopian tube was noted to be bleeding where the knot had been released. Then the tubal stumps were reinforced with an additional 2-0 plain. The uterus was then returned to the abdominal cavity. Adnexa were cleared of clot and debris. The tubal stump sites were inspected, both noted to be hemostatic. The hysterotomy was inspected and noted to be hemostatic. The muscles were then closed with a 2-0 chromic. The fascia was closed with a 0 Vicryl. Subcutaneous fat was closed with a 3-0 plain. The skin was closed with 3-0 Biosyn. Bandages were applied. Sponge, lap, needle count was correct x3. The patient did receive Ancef at the start of the procedure. She was taken from the operating room to the recovery area in stable condition. MD YADIEL LOBO/[id number] MTDTammy
[2020-04-01] MEDS ORDERED: OXYTOCIN 20 UNITS in 0.9% NS 20 UNIT/1,000 ML INFUS.BAG IV ONE (11:31)
[2020-04-01] MEDS ORDERED: ONDANSETRON 4 MG/2 ML VIAL IVPUSH PRN (13:24)
[2020-04-01] MEDS: FERROUS SO4 325 MG TABLET (FP) PO SCH (18:06)
[2020-04-01] MEDS: SIMETHICONE 80 MG TAB.CHEW (FP) PO PRN (23:21)
[2020-04-02] MEDS: ACETAMINOPHEN 1000 MG/100 ML VIAL (NON FORMULARY) IVPB PRN ×2 (03:10→11:10)
[2020-04-02] MEDS: SIMETHICONE 80 MG TAB.CHEW (FP) PO PRN ×3 (07:46→19:38)
[2020-04-02] MEDS: FERROUS SO4 325 MG TABLET (FP) PO SCH ×2 (07:46→17:33)
[2020-04-02 08:09] LABS: BASO % 0.1 % (0-2.0); EOS % 0.3 % (0-4.5); HEMATOCRIT 31.6 % (32.4-45.2); HEMOGLOBIN 10.5 GM/dL (10.7-15.3); LYMPH % 17.3 % (8-40); MCH 29.9 pg (25.7-33.7); MCHC 33.3 g/dl (32.0-36.0); MEAN CELL VOLUME 89.8 fl (80-96); MEAN PLT VOLUME 10.9 fl (7.5-11.1); MONO % 5.1 % (3.8-10.2); NEUT % 77.2 % (42.8-82.8); PLATELET COUNT 121 K/MM3 (134-434); RBC 3.52 M/mm3 (3.60-5.2); RDW 12.7 % (11.6-15.6)
--- NOTE | 2020-04-02 08:22 | PN ---
Post Progress Note - Subjective Subjective: Pain controlled. Heartburn overnight, resolved. No fevers/chills. Type of Delivery: Repeat C/S Vital Signs: Vital Signs Temperature 97.7 F 04/02/20 06:00 Pulse Rate 68 04/02/20 06:00 Respiratory Rate 20 04/02/20 07:00 Blood Pressure 98/62 04/02/20 06:00 O2 Sat by Pulse Oximetry (%) 99 04/01/20 22:00 Uterus: Yes: Fundus below umbilicus Incision: Yes: Dressing dry and intact, Sutures intact Abdomen/GI: Yes: Abdomen soft Lochia: Yes: Rubra Lochia, amount: Small Extremities: Yes: Calves non-tender Perineum: Yes: Intact Activity: Ambulating - Labs Labs: CBC WBC 13.0 K/mm3 (4.0-10.0) H 04/02/20 07:28 RBC 3.52 M/mm3 (3.60-5.2) L 04/02/20 07:28 Hgb 10.5 GM/dL (10.7-15.3) L 04/02/20 07:28 Hct 31.6 % (32.4-45.2) L 04/02/20 07:28 MCV 89.8 fl (80-96) 04/02/20 07:28 MCH 29.9 pg (25.7-33.7) 04/02/20 07:28 MCHC 33.3 g/dl (32.0-36.0) 04/02/20 07:28 RDW 12.7 % (11.6-15.6) 04/02/20 07:28 Plt Count 121 K/MM3 (134-434) L 04/02/20 07:28 MPV 10.9 fl (7.5-11.1) 04/02/20 07:28 Absolute Neuts (auto) 10.0 K/mm3 (1.5-8.0) H 04/02/20 07:28 Neutrophils % 77.2 % (42.8-82.8) 04/02/20 07:28 Lymphocytes % 17.3 % (8-40) D 04/02/20 07:28 Monocytes % 5.1 % (3.8-10.2) 04/02/20 07:28 Eosinophils % 0.3 % (0-4.5) 04/02/20 07:28 Basophils % 0.1 % (0-2.0) 04/02/20 07:28 Nucleated RBC % 0 % (0-0) 04/02/20 07:28 Assessment/Plan 34yo s/p RLTCS, BTL, POD#1 Routine PP care PO pain control D/C San AM labs reviewed, normal Anticipate d/c to home POD#2 Katerine Alvarenga MD
[2020-04-02] MEDS: PRENATAL VITAMINS W/ FOLIC ACID TABLET (FP) PO SCH (10:00)
[2020-04-02] MEDS ORDERED: BISACODYL 10 MG SUPP.RECT RC PRN (10:19)
[2020-04-02] MEDS: FAMOTIDINE 20 MG TABLET PO SCH (10:57)
--- NOTE | 2020-04-02 11:39 | PN ---
Progress Note (short form) - Note Progress Note: Anesthesiologist post op notw POD#1.S/P C- Section and BTL under Spinal with duramorph. VSS. Ambulating. No apparent post anesthesia complications.
[2020-04-02] MEDS: oxyCODONE HCL 5 MG TABLET PO PRN ×2 (14:36→19:39)
[2020-04-02] MEDS: IBUPROFEN 600 MG TABLET (FP) PO PRN (19:38)
[2020-04-03] MEDS: IBUPROFEN 600 MG TABLET (FP) PO PRN ×3 (00:15→10:47)
[2020-04-03] MEDS: SIMETHICONE 80 MG TAB.CHEW (FP) PO PRN ×3 (00:15→10:48)
[2020-04-03] MEDS: oxyCODONE HCL 5 MG TABLET PO PRN ×3 (00:16→10:46)
--- NOTE | 2020-04-03 08:07 | DS ---
Physical Exam-REGISTERED NURSE Vital Signs: Vital Signs Temperature 98.1 F 04/02/20 22:00 Pulse Rate 84 04/02/20 22:00 Respiratory Rate 18 04/02/20 22:00 Blood Pressure 116/77 04/02/20 22:00 O2 Sat by Pulse Oximetry (%) 100 04/02/20 18:00 Constitutional: Yes: Well Nourished, Obese, Other (pain scale 5/10) Eyes: Yes: WNL HENT: Yes: WNL Neck: Yes: WNL Cardiovascular: Yes: WNL Respiratory: Yes: WNL Gastrointestinal: Yes: WNL, Normal Bowel Sounds, Soft, Abdomen, Obese, Other (bm done). No: Distention Renal/: Yes: WNL, Other (voiding without difficulty) ....Post : Yes: Uterus firm, Uterus non-tender, Moderate lochia rubra Breast(s): Yes: WNL (not engorged . breast feeding) Musculoskeletal: Yes: WNL Extremities: Yes: WNL. No: Calf Tenderness Edema: LLE: Trace, RLE: Trace Integumentary: Yes: WNL Wound/Incision: Yes: Clean/Dry, Well Approximated, Sutures Intact, Steri Strips, Open to air. No: Draining, Reddened, Bleeding, Excoriated Neurological: Yes: WNL, Alert, Oriented ...Motor Strength: WNL Psychiatric: Yes: WNL, Alert, Oriented Labs: CBC, BMP 04/02/20 07:28 Delivery - Delivery Type of Anesthesia: Spinal EBL (cc): 700 Delivery, Single - Stages of Labor Date of Delivery: 04/01/20 Time of Delivery: 09:45 Time Placenta Delivered: 09:46 - Condition of Infant Moveman/Educational Interpreter Present: Yes Name: Daisy Ramos Infant Gender: Male Weight: 9 lb 6 oz Total Hours ROM (Hrs/Mins): 00:01 - 1 Minute Total Score: 9 5 Minutes Total Score: 9 - Selfridge Feeding Plan Initial Plan: Exclusive throughout hospitalization Remarks - Remarks Remarks: po course uneventful po instructions given discharge today Discharge Summary Problems reviewed: Yes Reason For Visit: Current Active Problems 39 weeks gestation of (Acute) Multiparity (Acute) Previous section (Acute) Condition: Stable - Instructions Diet, Activity, Other Instructions: Regular Diet Follow up in one week for an incision check with Dr. Alvarenga Referrals: Jimena Alvarenga MD [Staff Physician] - Disposition: HOME - Home Medications Comprehensive Discharge Medication List: Ambulatory Orders Iron 18 mg PO DAILY 10/25/17 Mv-Mn/Iron/FA/Herbal/Digestive [ One Tablet] 1 tab PO DAILY 04/01/20 Breast Pump 1 each MC 5XD 30 Days #1 each 04/02/20 Ferrous Sulfate [Feosol] 325 mg PO DAILY #30 tablet 04/02/20 Ibuprofen 600 mg PO Q6H PRN #30 tablet 04/02/20 Oxycodone HCl/Acetaminophen [Percocet 5-325 mg Tablet -] 1 - 2 tab PO Q6H PRN #20 tab MDD 4 04/02/20
[2020-04-03] MEDS: FERROUS SO4 325 MG TABLET (FP) PO SCH (08:16)
[2020-04-03 09:19] VITALS: BP 101/69; PULSE 69; TEMP 98.2
[2020-04-03] MEDS: FAMOTIDINE 20 MG TABLET PO SCH (10:41)
[2020-04-03] MEDS: PRENATAL VITAMINS W/ FOLIC ACID TABLET (FP) PO SCH (10:42)
--- NOTE | 2020-04-05 17:19 | PATH ---
Surgical Pathology Report Patient Name: DELFINA LLOYD [facility]. Rec. #: [id number] /Age/Gender: 1985 (Age: 34) / F Account: [id number] Location: [facility] OBS/TUG HAND Taken: 04/01/2020 Received: 04/02/2020 Reported: 04/05/2020 Physicians: Jimena Alvarenga Specimen(s) Received A: PLACENTA B: RIGHT FALLOPIAN TUBE C: LEFT FALLOPIAN TUBE Clinical History , previous 39.3 weeks gestation Final Diagnosis A. PLACENTA: THIRD TRIMESTER PLACENTA. TRIVASCULAR CORD. MEMBRANES WITH NO DIAGNOSTIC ABNORMALITIES. B. RIGHT FALLOPIAN TUBE, RESECTION: LUMINAL PORTION OF THE FALLOPIAN TUBE WITH DECIDUAL CHANGE IN THE STROMA. C. LEFT FALLOPIAN TUBE, RESECTION: LUMINAL PORTION OF THE FALLOPIAN TUBE WITH DECIDUAL CHANGE IN THE STROMA. Electronically Signed Candy Singh M.D. Gross Description A. The specimen is received fresh labeled placenta and is a 700 gram, 21.0 x 19.5 x 3.2 cm. placenta with attached membranes and umbilical cord. The attached membranes are milner, translucent with focal opacities and insert marginally. The umbilical cord measures 38 cm. in length and averages 1.3 cm. in diameter. The cord inserts eccentrically, 1 cm. to the nearest margin. No true knots or strictures are identified. Cut surface of the umbilical cord reveals 3 vessels. The surface is marcos-blue with minimal fibrin deposition and appropriate caliber vessels. The maternal surface is red-brown with focal defects. Sectioning reveals red-brown, spongy parenchyma. No lesions are identified. Glass Designer sections are submitted in three cassettes as follows: 1- membrane rolls and umbilical cord; 2-3- full thickness sections of placenta. B. Received in formalin labeled "portion of fallopian tube right," is a 1.8 cm in length portion of fallopian tube. No fimbria are present. The outer surface is milner-pink and smooth. Sectioning reveals an unremarkable lumen. Glass Designer sections are submitted in one cassette. C. received in formalin labeled "portion fallopian tube left," is a 0.7 cm in length portion of fallopian tube. No fimbria are present. The outer surface is milner-pink and smooth. Sectioning reveals an unremarkable lumen. Glass Designer sections are submitted in one cassette. DL/04/02/2020 saudi04/02/2020
== END 2020-04-03 14:40 | disposition home or self-care (01) | DRG 540 ==
LOC: JLDR 08:00 → J3W 11:45
PROVIDERS: ADMIT Obstetrics & Gynecology; ATTEND Obstetrics & Gynecology
PROC: 10D00Z1 Extraction of Products of Conception, Low, Open Approach (ICD-10-PCS; principal; 2020-04-01)
PROC: 0UB70ZZ Excision of Bilateral Fallopian Tubes, Open Approach (ICD-10-PCS; 2020-04-01)
DX: O34.211 Maternal care for low transverse scar from previous cesarean delivery (principal); N85.8 Other specified noninflammatory disorders of uterus; O40.3XX0 Polyhydramnios, third trimester, not applicable or unspecified; O24.429 Gestational diabetes mellitus in childbirth, unspecified control; O99.214 Obesity complicating childbirth; Z3A.39 39 weeks gestation of pregnancy; Z30.2 Encounter for sterilization; Z37.0 Single live birth
CPT/HCPCS: 36415; 82962; 85025; 88302-TC; 88307-TC; J0131

== ENCOUNTER 2022-10-09 08:18 | Emergency (ER) | payer OTHER ==
[2022-10-09 08:24] VITALS: BP 118/69; PULSE 87; RESP 20; TEMP 97.5
[2022-10-09] MEDS ORDERED: KETOROLAC TROMETHAMINE 30 MG/1 ML VIAL IM ONE (08:36)
[2022-10-09] MEDS ORDERED: DEXAMETHASONE SOD PHOSPHATE 4 MG/1 ML VIAL IM ONE (08:37)
[2022-10-09] MEDS ORDERED: KETOROLAC TROMETHAMINE 30 MG/1 ML VIAL ONE (08:40)
[2022-10-09] MEDS ORDERED: DEXAMETHASONE SOD PHOSPHATE 4 MG/1 ML VIAL ONE (08:40)
== END 2022-10-09 10:08 | disposition home or self-care (01) ==
LOC: JERFT 08:18
PROC: 3E033GC Introduction of Other Therapeutic Substance into Peripheral Vein, Percutaneous Approach (ICD-10-PCS; principal; 2022-10-09)
PROC: 3E0333Z Introduction of Anti-inflammatory into Peripheral Vein, Percutaneous Approach (ICD-10-PCS; 2022-10-09)
DX: H92.03 Otalgia, bilateral (principal); J02.9 Acute pharyngitis, unspecified; J06.9 Acute upper respiratory infection, unspecified
CPT/HCPCS: 0241U-QW; 87651; 99284-25